=== PATIENT | female | born 1950 | race African-American/Black ===

== ENCOUNTER 2025-04-05 17:22 | Inpatient (IN) | payer MEDICARE, OTHER ==
[~2025-04-05] VITALS: Ht 157.5 cm; Wt 70.8 kg
[2025-04-05] MEDS: methylPREDNISolone SOD SUCC 125 MG/2 ML VL IV ONE (17:53)
[2025-04-05 17:59] VITALS: PULSE 112; O2SAT 98
--- NOTE | 2025-04-05 18:15 | DVH ---
CHEST RADIOGRAPH Indication: sob Technique: Single frontal view of the chest was obtained Comparison: 10/12/2024 report only FINDINGS: Lines and Tubes: None Lungs: Right mid to lower lung zone opacity with obscuration of the right hemidiaphragm. Indistinctness of the left hemidiaphragm. No pneumothorax. Cardiomediastinal contours: Limited evaluation of the Heart size due to right mid to lower lung zone opacity. Mild atherosclerotic calcification and uncoiling of the aorta. Bones: No acute osseous abnormality. IMPRESSION: Right mid to lower lung zone opacity which may represent pneumonia in the right clinical setting. Underlying small right-sided pleural effusion can not be excluded. Possible trace left-sided pleural effusion/left basilar atelectasis.
[2025-04-05] MEDS: ALBUTEROL SULF 2.5 MG/0.5ML(0.5%) NEB SOLN NEB ONE ×2 (18:17→19:25)
[2025-04-05] MEDS: IPRATROPIUM BROM 0.5 MG/2.5ML INH SOL NEB ONE ×2 (18:17→19:25)
[2025-04-05 18:40] LABS: Hematocrit 38.5 % (36.0-46.0); Hemoglobin 12.8 g/dL (12.2-16.2); Mean Corpuscular Hemoglobin 26.4 pg (28.0-32.0); Mean Corpuscular Volume 79.3 fL (80.0-100.0)
[2025-04-05 18:46] LABS: Albumin 4.0 g/dL (3.2-4.8); Anion Gap 14 (5-15); BUN/Creatinine Ratio 10.8 (10.0-20.0); Bilirubin, Total 0.8 mg/dL (0.2-1.0); Calcium 9.3 mg/dL (8.7-10.4); Carbon Dioxide 26 mmol/L (20-31); Potassium 3.8 mmol/L (3.5-5.1); Total Protein 6.9 g/dL (5.7-8.2)
[2025-04-05 18:53] LABS: Alanine Aminotransferase 42 U/L (7-40); Alkaline Phosphatase 313 U/L (46-116); Blood Urea Nitrogen 9 mg/dL (9-23); Chloride 93 mmol/L (98-107); Glucose 221 mg/dL (74-106); Sodium 133 mmol/L (136-145)
[2025-04-05 19:15] VITALS: PULSE 111; RESP 12; O2SAT 97
[2025-04-05 19:47] LABS: Anisocytosis Slight; Total Cells Counted 100.0 (100)
[2025-04-05] MEDS: AZITHROMYCIN 500MG/ 250ML 250 ML IV ONE (20:26)
--- NOTE | 2025-04-05 22:02 | ED.PDOC ---
SOB-HPI HPI Comments 74-year-old female brought in by . Patient has been having shortness of breath and a cough times 10+ days. They went to [place] urgent care last week and was prescribed antibiotics but it did not help much. Patient does have a history of asthma. States she has been using her nebulizer treatments at home with little effect. Today the shortness of breath continued to get worse so she decided to come in to get checked again. No fever no chills, no nausea no vomiting no diarrhea. Nothing makes it better, walking makes it worse. Chief Complaint: Shortness of Breath Time Seen by MD: 17:42 Reviewed notes: Nurses Notes Information Source: Patient Mode of Arrival: Wheelchair Severity: Moderate Past Medical History PAST MEDICAL HISTORY: Asthma Constitutional: denies: chills, diaphoresis, fatigue, fever, malaise, sweats, weakness, others EENTM: denies: blurred vision, double vision, ear bleeding, ear discharge, ear drainage, ear pain, ear ringing, eye pain, eye redness, hearing loss, mouth pain, mouth swelling, nasal discharge, nose bleeding, nose congestion, nose pain, photophobia, tearing, throat pain, throat swelling, voice changes, others Respiratory: reports: cough, SOB at rest, shortness of breath, SOB with excertion; denies: hemoptysis, orthopnea, stridor, wheezing, others Cardiovascular: denies: chest pain, dizzy spells, diaphoresis, Dyspnea on exertion, edema, irregular heart beat, left arm pain, lightheadedness, palpitations, PND, syncope, others Gastrointestinal: denies: abdomen distended, abdominal pain, blood streaked bowels, constipated, diarrhea, dysphagia, difficulty swallowing, hematemesis, melena, nausea, poor appetite, poor fluid intake, rectal bleeding, rectal pain, vomiting, others Genitourinary: denies: abnormal vagina bleeding, burning, dyspareunia, dysuria, flank pain, frequency, hematuria, incontinence, pain, , vagina discharge, urgency, others Neurological: denies: dizziness, fainting, headache, left sided numbness, left sided weakness, numbness, paresthesia, pre-existing deficit, right sided numbness, right sided weakness, seizure, speech problems, tingling, tremors, weakness, others Musculoskeletal: denies: back pain, gout, joint pain, joint swelling, muscle pain, muscle stiffness, neck pain, others Integumetry: denies: bruises, change in color, change in hair/nails, dryness, laceration, lesions, lumps, rash, wounds, others Allergic/Immunocompromised: denies: Difficulty Healing, Frequent Infections, Hives, Itching, others Physical Exam General Appearance: Moderate Distress HEENT: Normal ENT Inspection, Pharynx Normal, TMs Normal Neck: Full Range of Motion, Non-Tender, Normal, Normal Inspection Respiratory: Chest Non-Tender, No Accessory Muscle Use, Rhonchi, Wheezing Cardiovascular: No Edema, No JVD, No Murmur, No Gallop, Normal Peripheral Pulses, Regular Rate/Rhythm Breast Exam: Deferred Gastrointestinal: No Organomegaly, Non Tender, No Pulsatile Mass, Normal Bowel Sounds, Soft Genitalia: Deferred Pelvic: Deferred Rectal: Deferred Extremities: No calf tenderness, Normal capillary refill, Normal inspection, Normal range of motion, Non-tender, No pedal edema Musculoskeletal : Apperance: Normal Neurologic: Alert, clothes shaker II-XII nml as Tested, No Motor Deficits, Normal Affect, Normal Mood, No Sensory Deficits Cerebellar Function: Normal Reflexes: Normal Skin: Dry, Normal Color, Warm Lymphatic: No Adenopathy Was a procedure done? Was a procedure done?: No Differential Dx Differential Diagnosis: Asthma, Bronchitis, CHF, Pneumonia X-Ray, Labs, Meds, VS Vital Signs Date Time Temp Pulse Resp B/P (MAP) Pulse Ox O2 Delivery O2 Flow Rate FiO2 04/05/25 21:00 110 21 150/76 (100) 98 04/05/25 20:00 114 04/05/25 20:00 112 19 141/72 (95) 95 04/05/25 19:25 16 96 Non-Rebreather 15 N/A 04/05/25 19:20 111 12 157/72 (100) 96 04/05/25 19:15 111 12 97 Non-Rebreather 15 N/A 04/05/25 18:17 30 97 Non-Rebreather 15 N/A 04/05/25 17:59 112 98 Non-Rebreather 15 N/A 04/05/25 17:43 120 37 126/67 (86) 96 04/05/25 17:25 98.1 122 27 154/57 70 98.1 Lab Test 04/05/25 19:14 04/05/25 18:09 Range/Units Troponin I High Sensitivity < 3 L < 3 L </=34 ng/L White Blood Count 31.1 *H 4.4-10.8 10^3/uL Red Blood Count 4.86 4.0-5.20 10^6/uL Hemoglobin 12.8 12.2-16.2 g/dL Hematocrit 38.5 36.0-46.0 % Mean Corpuscular Volume 79.3 L 80.0-100.0 fL Mean Corpuscular Hemoglobin 26.4 L 28.0-32.0 pg Mean Corpuscular Hemoglobin Concent 33.3 32.0-36.0 g/dL Red Cell Distribution Width 16.5 H 11.8-14.3 % Platelet Count 356 140-450 10^3/uL Mean Platelet Volume 7.7 6.9-10.8 fL Neutrophils (%) (Auto) 37.0-80.0 % Lymphocytes (%) (Auto) 10.0-50.0 % Monocytes (%) (Auto) 0.0-12.0 % Basophils (%) (Auto) 0.0-2.0 % Neutrophils # (Auto) 1.6-8.6 10 ^3/uL Lymphocytes # (Auto) 0.4-5.4 10 ^3/uL Monocytes # (Auto) 0-1.3 10 ^3/uL Differential Total Cells Counted 100.0 100 Neutrophils % (Manual) 77 37.0-80.0 Band Neutrophils % (Manual) 14 Lymphocytes % (Manual) 4 L 10.0-50.0 Monocytes % (Manual) 4 0-12 Eosinophils % (Manual) 1 0-7 Basophils % (Manual) 0 0.0-2.0 Metamyelocytes % (manual) 0 Myelocytes % (Manual) 0 Promyelocytes % (Manual) 0 Blast Cells % (Manual) 0 Reactive Lymphocytes 0 Platelet Estimate Adequate Large Platelets Few Anisocytosis (manual) Slight Microcytosis Slight Sodium Level 133 L 136-145 mmol/L Potassium Level 3.8 3.5-5.1 mmol/L Chloride Level 93 L 98-107 mmol/L Carbon Dioxide Level 26 20-31 mmol/L Anion Gap 14 5-15 Blood Urea Nitrogen 9 9-23 mg/dL Creatinine 0.83 0.550-1.02 mg/dL Glomerular Filtration Rate Calc 73 >90 mL/min BUN/Creatinine Ratio 10.8 10.0-20.0 Serum Glucose 221 H 74-106 mg/dL Lactic Acid Level 1.4 0.4-2.0 mmol/L Calcium Level 9.3 8.7-10.4 mg/dL Total Bilirubin 0.8 0.2-1.0 mg/dL Aspartate Amino Transferase (AST) 23 13-40 U/L Alanine Aminotransferase (ALT) 42 H 7-40 U/L Alkaline Phosphatase 313 H 46-116 U/L B-Type Natriuretic Peptide 21.32 0-100 pg/mL Total Protein 6.9 5.7-8.2 g/dL Albumin 4.0 3.2-4.8 g/dL Current Medications Medications (Trade) Dose Ordered Sig/Henry Route Start Time Stop Time Status Last Admin Albuterol (Ventolin Medneb) 2.5 mg ONCE ONCE NEB 04/05/25 18:00 04/05/25 18:01 DC 04/05/25 18:17 Ipratropium [place] (Atrovent Medneb) 0.5 mg ONCE ONCE NEB 04/05/25 18:00 04/05/25 18:01 DC 04/05/25 18:17 Methylprednisolone Sodium Succinate (Solu Medrol) 125 mg ONCE ONCE IV 04/05/25 18:00 04/05/25 18:01 DC 04/05/25 17:53 Ceftriaxone Sodium 50 ml @ 100 mls/hr ONCE ONCE IV 04/05/25 18:45 04/05/25 19:14 DC 04/05/25 19:08 Azithromycin 250 ml @ 125 mls/hr ONCE ONCE IV 04/05/25 18:45 04/05/25 20:44 DC 04/05/25 20:26 Albuterol (Ventolin Medneb) 2.5 mg ONCE ONCE NEB 04/05/25 19:15 04/05/25 19:16 DC 04/05/25 19:25 Ipratropium [place] (Atrovent Medneb) 0.5 mg ONCE ONCE NEB 04/05/25 19:15 04/05/25 19:16 DC 04/05/25 19:25 X-Ray, Labs, Meds, VS Comment Patient will be admitted for pneumonia and hypoxia Patient was given three rounds of DuoNeb treatments with good effect, patient unable to maintain O2 saturation above 92% on room air. Patient placed on 10 L non-rebreather Patient was started on Rocephin 1 g and azithromycin, given 125 mg of dexamethasone Patient hemodynamically stable Prior history reviewed by this provider Time of 1ST Reevaluation: 22:01 Reevaluation 1ST: Improved Patient Education/Counseling: Diagnosis, Treatment Family Education/Counseling: Diagnosis, Treatment SEPSIS Sepsis Screen Date sepsis recognized/suspect: Apr 05, 2025 Time Sepsis recognized/suspect: 2120 Recent Procedure: No On Antibiotic Therapy: No Respiratory Rate >20: No Heart Rate >90: Yes Temp<36 C (96.8 F) or >38.3 C: No SBP <90 or MAP <65 mmHG: No New Acute Mental Status Change: No Is the patient on CPAP, BIPAP,: No Physician Orders Urinalysis (04/05/25 17:37) Electrocardigram (04/05/25 17:37) Blood Culture (04/05/25 17:37) Chest Portable (04/05/25 17:37) Electrocardigram (04/05/25 18:37) Electrocardigram (04/05/25 20:37) Vital Signs Date Time Temp Pulse Resp B/P (MAP) Pulse Ox O2 Delivery O2 Flow Rate FiO2 04/05/25 21:00 110 21 150/76 (100) 98 04/05/25 20:00 114 04/05/25 20:00 112 19 141/72 (95) 95 04/05/25 19:25 16 96 Non-Rebreather 15 N/A 04/05/25 19:20 111 12 157/72 (100) 96 04/05/25 19:15 111 12 97 Non-Rebreather 15 N/A 04/05/25 18:17 30 97 Non-Rebreather 15 N/A 04/05/25 17:59 112 98 Non-Rebreather 15 N/A 04/05/25 17:43 120 37 126/67 (86) 96 04/05/25 17:25 98.1 122 27 154/57 70 98.1 Laboratory Tests Test 04/05/25 18:09 Lactic Acid Level 1.4 mmol/L (0.4-2.0) White Blood Count 31.1 10^3/uL (4.4-10.8) *H Medications Medications Dose Ordered Sig/Henry Route Start Time Stop Time Status Last Admin Dose Admin Albuterol 2.5 mg ONCE ONCE NEB 04/05/25 18:00 04/05/25 18:01 DC 04/05/25 18:17 Albuterol 2.5 mg ONCE ONCE NEB 04/05/25 19:15 04/05/25 19:16 DC 04/05/25 19:25 Azithromycin 250 ml @ 125 mls/hr ONCE ONCE IV 04/05/25 18:45 04/05/25 20:44 DC 04/05/25 20:26 Ceftriaxone Sodium 50 ml @ 100 mls/hr ONCE ONCE IV 04/05/25 18:45 04/05/25 19:14 DC 04/05/25 19:08 Ipratropium [place] 0.5 mg ONCE ONCE NEB 04/05/25 18:00 04/05/25 18:01 DC 04/05/25 18:17 Ipratropium [place] 0.5 mg ONCE ONCE NEB 04/05/25 19:15 04/05/25 19:16 DC 04/05/25 19:25 Methylprednisolone Sodium Succinate 125 mg ONCE ONCE IV 04/05/25 18:00 04/05/25 18:01 DC 04/05/25 17:53 Departure 1 Departure Time of Disposition: 22:00 Impression: Primary Impression: Right middle lobe pneumonia Qualified Codes: J18.9 - Pneumonia, unspecified organism Additional Impression: Hypoxia Disposition: ADMITTED INPATIENT Condition: Stable Discharged With: Self Critical Care Note Critical Care Time?: No Stability Stability form required: No Heart Score Heart Score: Heart Score Response (Comments) Value History N/A 0 EKG N/A 0 Age N/A 0 Risk Factors N/A 0 Troponin N/A 0 Total 0 FRANCISCO ROYALP Apr 05, 2025 22:02
[2025-04-06] MEDS ORDERED: IPRATROPIUM BROM 0.5 MG/2.5ML INH SOL NEB PRN
[2025-04-06] MEDS ORDERED: MORPHINE SULFATE INJ 2 MG/ml SYRG IV PRN
[2025-04-06] MEDS ORDERED: ALBUTEROL SULF 2.5 MG/0.5ML(0.5%) NEB SOLN NEB PRN
[2025-04-06] MEDS ORDERED: NITROGLYCERIN 0.4 MG SL TAB SL PRN
[2025-04-06] MEDS ORDERED: ONDANSETRON HCL 4 MG/2 ML VIAL IV PRN
[2025-04-06 00:31] VITALS: BP 152/76; PULSE 112; RESP 21; TEMP 98.1; O2SAT 96
--- NOTE | 2025-04-06 04:50 | DVHHP2 ---
History of Present Illness Reason for Visit: Shortness for breath History of Present Illness 74-year-old female presents for evaluation of shortness for breath. Patient presents with a 10 day history of worsening shortness for breath with associated productive cough with yellow phlegm. She reports being seen at urgent care last week and prescribed antibiotics and yet has not had relief of the symptoms. Denies fever or chills. No chest pain. Past Medical History Asthma, hypertension, thyroid, dyslipidemia Past Surgical History Denies Family History Noncontributory Smoke: No ALCOHOL: none Drugs: None Lives: with Family Review of Systems Review of Systems Review of systems are currently negative otherwise addressed in HPI. Allergies: Coded Allergies: Aspirin (Verified Allergy, Unknown, 04/05/25) Medications Current Medications Medications Dose Ordered Sig/Henry Route Start Time Stop Time Status Last Admin Dose Admin Ceftriaxone Sodium 50 ml @ 100 mls/hr DAILY@09 IV 04/06/25 09:00 Azithromycin 250 ml @ 125 mls/hr DAILY IV 04/06/25 10:00 Montelukast Sodium 10 mg HS PO 04/06/25 22:00 Amlodipine Besylate 10 mg DAILY PO 04/06/25 10:00 Levothyroxine Sodium 75 mcg QAM@0600 PO 04/06/25 06:00 Methylprednisolone Sodium Succinate 40 mg DAILY IV 04/06/25 10:00 Albuterol 2.5 mg Q6HPRN PRN NEB 04/06/25 00:00 Ipratropium [place] 0.5 mg Q6HPRN PRN NEB 04/06/25 00:00 Ondansetron HCl 4 mg Q4HP PRN IV 04/06/25 00:00 Enoxaparin Sodium 40 mg DAILY SC 04/06/25 10:00 Acetaminophen 650 mg Q6HP PRN PO 04/06/25 00:00 Nitroglycerin 0.4 mg Q5MINP PRN SL 04/06/25 00:00 Morphine Sulfate 2 mg Q30M PRN IV 04/06/25 00:00 Pravastatin Sodium 20 mg HS PO 04/06/25 22:00 Exam Vital Signs Vital Signs Date Time Temp Pulse Resp B/P (MAP) Pulse Ox O2 Delivery O2 Flow Rate FiO2 04/06/25 02:00 116 21 157/72 (100) 93 04/06/25 00:31 98.1 15.0 98.1 04/05/25 19:25 Non-Rebreather N/A Exam Gen: 74-year-old female in mild distress Skin: Warm, dry, normal color and texture, no rash. HEENT: Normocephalic atraumatic, mucous membranes moist and pink. Neck: Cervical and supraclavicular nodes normal without enlargement, trachea is midline, thyroid gland is normal without masses. Pulmonary: Diminished breath sounds bilaterally Cardiac: Regular rate and rhythm. No murmur Abdomen: Soft, nontender, nondistended, bowel sounds present all 4 quadrants, no guarding, no rigidity, no organomegaly. Extremities: No cyanosis, clubbing, no edema Neuro: Cranial nerves II through XII grossly intact, normal affect and speech, no focal motor deficits. Labs/Xrays ORDERING PHYSICIAN: HESHAM DURON MD PROCEDURE(s): CXRP - CHEST PORTABLE REASON: sob ORDER NUMBER(s): [id number], ACCESSION NUMBER(s): [id number] CHEST RADIOGRAPH Indication: sob Technique: Single frontal view of the chest was obtained Comparison: 10/12/2024 report only FINDINGS: Lines and Tubes: None Lungs: Right mid to lower lung zone opacity with obscuration of the right hemidiaphragm. Indistinctness of the left hemidiaphragm. No pneumothorax. Cardiomediastinal contours: Limited evaluation of the Heart size due to right mid to lower lung zone opacity. Mild atherosclerotic calcification and uncoiling of the aorta. Bones: No acute osseous abnormality. IMPRESSION: Right mid to lower lung zone opacity which may represent pneumonia in the right clinical setting. Underlying small right-sided pleural effusion can not be excluded. Possible trace left-sided pleural effusion/left basilar atelectasis. Labs Test 04/05/25 19:14 04/05/25 18:09 Range/Units Troponin I High Sensitivity < 3 L </=34 ng/L White Blood Count 31.1 *H 4.4-10.8 10^3/uL Red Blood Count 4.86 4.0-5.20 10^6/uL Hemoglobin 12.8 12.2-16.2 g/dL Hematocrit 38.5 36.0-46.0 % Mean Corpuscular Volume 79.3 L 80.0-100.0 fL Mean Corpuscular Hemoglobin 26.4 L 28.0-32.0 pg Mean Corpuscular Hemoglobin Concent 33.3 32.0-36.0 g/dL Red Cell Distribution Width 16.5 H 11.8-14.3 % Platelet Count 356 140-450 10^3/uL Mean Platelet Volume 7.7 6.9-10.8 fL Neutrophils (%) (Auto) 37.0-80.0 % Lymphocytes (%) (Auto) 10.0-50.0 % Monocytes (%) (Auto) 0.0-12.0 % Basophils (%) (Auto) 0.0-2.0 % Neutrophils # (Auto) 1.6-8.6 10 ^3/uL Lymphocytes # (Auto) 0.4-5.4 10 ^3/uL Monocytes # (Auto) 0-1.3 10 ^3/uL Differential Total Cells Counted 100.0 100 Neutrophils % (Manual) 77 37.0-80.0 Band Neutrophils % (Manual) 14 Lymphocytes % (Manual) 4 L 10.0-50.0 Monocytes % (Manual) 4 0-12 Eosinophils % (Manual) 1 0-7 Basophils % (Manual) 0 0.0-2.0 Metamyelocytes % (manual) 0 Myelocytes % (Manual) 0 Promyelocytes % (Manual) 0 Blast Cells % (Manual) 0 Reactive Lymphocytes 0 Platelet Estimate Adequate Large Platelets Few Anisocytosis (manual) Slight Microcytosis Slight Sodium Level 133 L 136-145 mmol/L Potassium Level 3.8 3.5-5.1 mmol/L Chloride Level 93 L 98-107 mmol/L Carbon Dioxide Level 26 20-31 mmol/L Anion Gap 14 5-15 Blood Urea Nitrogen 9 9-23 mg/dL Creatinine 0.83 0.550-1.02 mg/dL Glomerular Filtration Rate Calc 73 >90 mL/min BUN/Creatinine Ratio 10.8 10.0-20.0 Serum Glucose 221 H 74-106 mg/dL Lactic Acid Level 1.4 0.4-2.0 mmol/L Calcium Level 9.3 8.7-10.4 mg/dL Total Bilirubin 0.8 0.2-1.0 mg/dL Aspartate Amino Transferase (AST) 23 13-40 U/L Alanine Aminotransferase (ALT) 42 H 7-40 U/L Alkaline Phosphatase 313 H 46-116 U/L B-Type Natriuretic Peptide 21.32 0-100 pg/mL Total Protein 6.9 5.7-8.2 g/dL Albumin 4.0 3.2-4.8 g/dL SEPSIS Sepsis Screen Date sepsis recognized/suspect: Apr 05, 2025 Time Sepsis recognized/suspect: 2120 Recent Procedure: No On Antibiotic Therapy: No Respiratory Rate >20: No Heart Rate >90: Yes Temp<36 C (96.8 F) or >38.3 C: No SBP <90 or MAP <65 mmHG: No New Acute Mental Status Change: No Is the patient on CPAP, BIPAP,: No Physician Orders Ceftriaxone 1gm/50ml (Rocephin) (04/06/25 09:00) Azithromycin 500mg/ 250ml (Zithromax 50 (04/06/25 10:00) Montelukast Tablet (Singulair Tablet) (04/06/25 22:00) Amlodipine Tablet (Norvasc Tablet) (04/06/25 10:00) Levothyroxine Tablet (Synthroid Tablet) (04/06/25 06:00) Methylprednisolone Sod Succ (Solu Medrol (04/06/25 10:00) Albuterol Medneb (Ventolin Medneb) (04/06/25 00:00) Ipratropium Medneb (Atrovent Medneb) (04/06/25 00:00) D-Dimer (04/05/25 23:54) Basic Metabolic Panel (04/06/25 04:00) Admit (04/05/25 23:54) Ondansetron Hcl (Zofran) (04/06/25 00:00) Enoxaparin Sodium (Lovenox) (04/06/25 10:00) Complete Blood Count (04/06/25 04:00) Cardiac Diet-2gna,Lofat,Lochol (04/06/25 Breakfast) Condition: Critical (04/05/25 23:54) Acetaminophen Tablet (Tylenol Tablet) (04/06/25 00:00) Bedrest With Bathroom Privileg (04/05/25 23:54) Nitroglycerin Sublingual (Ntrostat Subli (04/06/25 00:00) Morphine Sulfate Injection (04/06/25 00:00) Stat Ekg For Chest Pain (04/05/25 23:54) Notify Of Changes From Base (04/05/25 23:54) Engineering Drawings Checker For 24 Hours (04/05/25 23:54) Emergency Dysrhythmia Protocol (04/05/25 23:54) Rhythm Strips Once Every Shift (04/05/25 23:54) Oxygen By Nasal Cannula (04/05/25 23:54) Pravastatin Sodium Tablet (Pravachol Tab (04/06/25 22:00) Vital Signs Date Time Temp Pulse Resp B/P (MAP) Pulse Ox O2 Delivery O2 Flow Rate FiO2 04/06/25 02:00 116 21 157/72 (100) 93 04/06/25 00:31 98.1 112 21 152/76 96 15.0 98.1 04/06/25 00:03 150/76 04/05/25 23:00 112 21 152/76 (101) 96 04/05/25 21:00 110 21 150/76 (100) 98 Laboratory Tests Test 04/05/25 18:09 Lactic Acid Level 1.4 mmol/L (0.4-2.0) White Blood Count 31.1 10^3/uL (4.4-10.8) *H Medications Medications Dose Ordered Sig/Henry Route Start Time Stop Time Status Last Admin Dose Admin Albuterol 2.5 mg ONCE ONCE NEB 04/05/25 18:00 04/05/25 18:01 DC 04/05/25 18:17 2.5 MG Albuterol 2.5 mg ONCE ONCE NEB 04/05/25 19:15 04/05/25 19:16 DC 04/05/25 19:25 2.5 MG Amlodipine Besylate 5 mg ONCE ONCE PO 04/05/25 23:45 04/05/25 23:46 DC 04/06/25 00:03 5 MG Azithromycin 250 ml @ 125 mls/hr ONCE ONCE IV 04/05/25 18:45 04/05/25 20:44 DC 04/05/25 20:26 125 MLS/HR Ceftriaxone Sodium 50 ml @ 100 mls/hr ONCE ONCE IV 04/05/25 18:45 04/05/25 19:14 DC 04/05/25 19:08 100 MLS/HR Ipratropium [place] 0.5 mg ONCE ONCE NEB 04/05/25 18:00 04/05/25 18:01 DC 04/05/25 18:17 0.5 MG Ipratropium [place] 0.5 mg ONCE ONCE NEB 04/05/25 19:15 04/05/25 19:16 DC 04/05/25 19:25 0.5 MG Methylprednisolone Sodium Succinate 125 mg ONCE ONCE IV 04/05/25 18:00 04/05/25 18:01 DC 04/05/25 17:53 125 MG Assessment/Plan Assessment/Plan Assessment Community-acquired pneumonia Early sepsis Leukocytosis Acute kidney injury Hypertension Plan Admit the patient to [facility] to the hospitalist Rocephin/azithromycin Med nebs Resume home medications Continue treatment per orders. Plan discussed with: Patient My Orders Orders - JOSE GARNETT Procedure Category Date Status Time Ceftriaxone 1gm/50ml PHA 04/06/25 In Process (Rocephin) 09:00 Azithromycin 500mg/ PHA 04/06/25 In Process 250ml (Zithromax 50 10:00 Montelukast Tablet PHA 04/06/25 In Process (Singulair Tablet) 22:00 Amlodipine Tablet PHA 04/06/25 In Process (Norvasc Tablet) 10:00 Levothyroxine Tablet PHA 04/06/25 In Process (Synthroid Tablet) 06:00 Methylprednisolone PHA 04/06/25 In Process Sod Succ (Solu Medrol 10:00 Albuterol Medneb PHA 04/06/25 In Process (Ventolin Medneb) 00:00 Ipratropium Medneb PHA 04/06/25 In Process (Atrovent Medneb) 00:00 D-Dimer LAB 04/05/25 Logged 23:54 Basic Metabolic Panel LAB 04/06/25 Logged 04:00 Admit ADMIT 04/05/25 Transmitted 23:54 Ondansetron Hcl PHA 04/06/25 In Process (Zofran) 00:00 Enoxaparin Sodium PHA 04/06/25 In Process (Lovenox) 10:00 Complete Blood Count LAB 04/06/25 Logged 04:00 Cardiac DIET 04/06/25 Transmitted Diet-2gna,Lofat,Lochol Breakfast Condition: Critical [facility]ANDI 04/05/25 In Process 23:54 Acetaminophen Tablet PHA 04/06/25 In Process (Tylenol Tablet) 00:00 Bedrest With Bathroom [facility] 04/05/25 In Process Privileg 23:[address] [facility] 04/06/25 In Process Sublingual (Ntrostat 00:00 Morphine [address] [facility] 04/06/25 In Process Injection 00:00 Stat Ekg For Chest [facility] 04/05/25 In Process Pain 23:54 Notify Of Changes [facility] 04/05/25 In Process From Base 23:54 Engineering Drawings Checker For [facility] 04/05/25 In Process 24 Hours 23:54 Emergency Dysrhythmia [facility] 04/05/25 In Process Protocol 23:54 Rhythm Strips Once [facility] 04/05/25 In Process Every Shift 23:54 Oxygen By Nasal RT 04/05/25 Transmitted Cannula 23:54 Date of Service: Apr 05, 2025 Billing Provider: JOSE GARNETT Common Visit Codes: [id number] CARE 30-74 MIN JOSE GARNETT Apr 06, 2025 04:49
[2025-04-06 05:57] LABS: Hematocrit 36.4 % (36.0-46.0); Hemoglobin 12.1 g/dL (12.2-16.2); Mean Corpuscular Hemoglobin 26.4 pg (28.0-32.0); Mean Corpuscular Volume 79.2 fL (80.0-100.0)
[2025-04-06 05:58] LABS: Potassium 4.2 mmol/L (3.5-5.1)
[2025-04-06 05:59] LABS: Anion Gap 11 (5-15); Calcium 9.3 mg/dL (8.7-10.4); Carbon Dioxide 27 mmol/L (20-31)
[2025-04-06 06:04] LABS: BUN/Creatinine Ratio 14.6 (10.0-20.0); Blood Urea Nitrogen 12 mg/dL (9-23)
[2025-04-06 06:05] LABS: Chloride 94 mmol/L (98-107); Glucose 295 mg/dL (74-106); Sodium 132 mmol/L (136-145)
[2025-04-06] MEDS: LEVOTHYROXINE SODIUM 25 MCG TAB PO SCH (06:12)
[2025-04-06 06:27] VITALS: O2SAT 98
[2025-04-06 06:56] LABS: Total Cells Counted 100.0 (100)
[2025-04-06 06:57] LABS: Giant Platelets Few
[2025-04-06] MEDS: methylPREDNISolone SOD SUCC 40 MG/ML VL IV SCH ×2 (10:49→15:09)
[2025-04-06] MEDS: ENOXAPARIN SOD 40 MG/0.4 ML SYRINGE SC SCH (10:49)
[2025-04-06] MEDS: AZITHROMYCIN 500MG/ 250ML 250 ML IV SCH (11:07)
--- NOTE | 2025-04-06 12:59 | DVHPN2 ---
Reviewed: Care Plan, H&P, Labs, Medications, Previous Orders, Radiology Changes from previous H/P or p: No Changes Objective Vitals Vital Signs Date Time Temp Pulse Resp B/P (MAP) Pulse Ox O2 Delivery O2 Flow Rate FiO2 04/06/25 11:00 100 17 152/76 (101) 95 04/06/25 08:00 97.6 97.6 04/06/25 08:00 Non-Rebreather 15 N/A Intake/Output Intake and Output 04/06/25 07:00 Intake Total 425 ml Balance 425 ml Intake IV Total 425 ml Medications Current Medications Medications Dose Ordered Sig/Henry Route Start Time Stop Time Status Last Admin Dose Admin Ceftriaxone Sodium 50 ml @ 100 mls/hr DAILY@09 IV 04/06/25 09:00 04/06/25 09:24 100 MLS/HR Azithromycin 250 ml @ 125 mls/hr DAILY IV 04/06/25 10:00 04/06/25 11:07 125 MLS/HR Montelukast Sodium 10 mg HS PO 04/06/25 22:00 Amlodipine Besylate 10 mg DAILY PO 04/06/25 10:00 04/06/25 10:50 10 MG Levothyroxine Sodium 75 mcg QAM@0600 PO 04/06/25 06:00 04/06/25 06:12 75 MCG Methylprednisolone Sodium Succinate 40 mg DAILY IV 04/06/25 10:00 04/06/25 10:49 40 MG Albuterol 2.5 mg Q6HPRN PRN NEB 04/06/25 00:00 Ipratropium [place] 0.5 mg Q6HPRN PRN NEB 04/06/25 00:00 Ondansetron HCl 4 mg Q4HP PRN IV 04/06/25 00:00 Enoxaparin Sodium 40 mg DAILY SC 04/06/25 10:00 04/06/25 10:49 40 MG Acetaminophen 650 mg Q6HP PRN PO 04/06/25 00:00 Nitroglycerin 0.4 mg Q5MINP PRN SL 04/06/25 00:00 Morphine Sulfate 2 mg Q30M PRN IV 04/06/25 00:00 Pravastatin Sodium 20 mg HS PO 04/06/25 22:00 Laboratory Results Laboratory Tests 04/06/25 05:29 Chemistry Test 04/05/25 18:09 04/06/25 05:29 Albumin 4.0 g/dL (3.2-4.8) Calcium Level 9.3 mg/dL (8.7-10.4) 9.3 mg/dL (8.7-10.4) Total Protein 6.9 g/dL (5.7-8.2) Coagulation Test 04/06/25 05:29 D-Dimer, Quantitative 4.36 mg/L FEU (0.0-0.49) H Cardiac Markers Test 04/05/25 18:09 B-Type Natriuretic Peptide 21.32 pg/mL (0-100) LFT Test 04/05/25 18:09 Alanine Aminotransferase (ALT) 42 U/L (7-40) H Alkaline Phosphatase 313 U/L (46-116) H Aspartate Amino Transferase (AST) 23 U/L (13-40) Total Bilirubin 0.8 mg/dL (0.2-1.0) Labs and/or images reviewed: Labs reviewed by me, Image(s) reviewed by me Assessment/Plan Assessment/Plan Septic shock with elevated white count 13194 secondary to community-acquired pneumonia: Blood cultures respiratory cultures Acute community-acquired right lower lobe pneumonia: Rocephin azithromycin albuterol Atrovent Solu-Medrol Acute hypoxic respiratory failure requiring 15 L of oxygen by non-rebreather consult for pulmonology Dr. Gómez Elevated D-dimer 4.36: Venous ultrasound rule out DVT, CT chest angiogram rule out PE ordered Hypertension Hypercholesterolemia: Hypothyroidism Asthma Time Spent 70 minutes Advanced care planning time 20 minutes Patient is full code Plan discussed with: Patient My Orders Orders - JOSH ARMSTRONG MD Procedure Category Date Status Time Ct Angio Chest CT 04/06/25 Logged Contrast 12:47 Bilat Lower Dvt US 04/06/25 Verified 12:47 *Consult CONS 04/06/25 Transmitted 12:49 Respiratory Culture INRAV 04/06/25 Logged W/ Gs 12:51 Methylprednisolone PHA 04/06/25 Transmitted Sod Succ (Solu Medrol 13:00 Date of Service: Apr 06, 2025 Billing Provider: JOSH ARMSTRONG MD Common Visit Codes: [id number] CARE 30-74 MIN JOSH ARMSTRONG MD Apr 06, 2025 12:59
[2025-04-06] MEDS: IOHEXOL 350 MG/ML 100ML IJ ONE (13:17)
--- NOTE | 2025-04-06 14:42 | DVH ---
Bilateral lower extremity venous duplex Clinical History: pain; Rule out DVT Comparison: None Technique: Duplex Doppler evaluation of the deep venous systems of both lower extremities from the common femoral veins to the popliteal veins including color Doppler and spectral/pulsed waveform analysis was performed. Findings: RIGHT SIDE: The common femoral vein demonstrates appropriate compressibility and waveform variability. There is compressibility/patency of the great saphenous vein at the proximal thigh. The femoral vein demonstrates appropriate compressibility and waveform variability. The deep femoral vein demonstrates appropriate compressibility and waveform variability. The popliteal vein demonstrates appropriate compressibility and waveform variability. There is normal compressibility at the tibioperoneal trunk. LEFT SIDE: The common femoral vein demonstrates appropriate compressibility and waveform variability. There is compressibility/patency of the great saphenous vein at the proximal thigh. The femoral vein demonstrates appropriate compressibility and waveform variability. The deep femoral vein demonstrates appropriate compressibility and waveform variability. The popliteal vein demonstrates appropriate compressibility and waveform variability. There is normal compressibility at the tibioperoneal trunk. Impression: No right or left femoropopliteal venous thrombosis.
[2025-04-06 14:52] VITALS: PULSE 106; RESP 24; O2SAT 90
[2025-04-06] MEDS: IPRATROPIUM BROM 0.5 MG/2.5ML INH SOL NEB SCH (14:56)
[2025-04-06] MEDS: ALBUTEROL SULF 2.5 MG/0.5ML(0.5%) NEB SOLN NEB SCH (14:56)
[2025-04-06 15:02] VITALS: PULSE 110; RESP 18; O2SAT 94
--- NOTE | 2025-04-06 15:48 | DVH ---
CLINICAL HISTORY: Elevated D-dimer 4.36 rule out pulmonary embolism TECHNIQUE: CT angiogram of the chest was performed with intravenous contrast. 3D MIP reconstructed images were created and archived on the PACS system. This exam was performed according to our departmental dose optimization program. Up-to-date CT equipment and radiation dose reduction techniques are utilized as appropriate. CTDI: 20.72 DLP: 500.45 WID: COMPARISON: XY CHEST PORTABLE on DOS: 04/05/25, CT- LOWDOSE LUNG CANCER SCREEN on DOS: 11/04/24, XR CHEST 2 VIEWS on DOS: 10/12/24 FINDINGS: Lower Neck: Unremarkable Axilla, Mediastinum and Mayte: Small sliding-type hiatal hernia. There are mildly enlarged right hilar and mediastinal lymph nodes. No axillary lymphadenopathy. Heart and Great Vessels: Mild cardiomegaly with small pericardial effusion. The thoracic aorta is normal in caliber with moderate mixed atherosclerotic plaque. At least mild coronary artery calcifications. No central, segmental, or subsegmental pulmonary artery filling defects are seen to suggest pulmonary embolism. Airway, Lungs and Pleura: Trachea and central airways are patent. Bronchial wall thickening bilaterally. Moderate to marked centrilobular emphysema. There is a large right upper lobe consolidation with air bronchograms. Smaller patchy airspace consolidations in the right lower lobe. Small right pleural effusion. No pneumothorax. Linear consolidations in the basilar right middle and lower lobes with volume loss. Chest Wall and Osseous Structures: Multilevel thoracic spondylosis. Slight bony demineralization. No destructive osseous lesion. Upper abdomen: Unremarkable IMPRESSION: 1. No evidence of pulmonary embolism. 2. Large consolidation with air bronchograms in the right upper lobe and smaller patchy airspace opacities in the right lower lobe likely multifocal pneumonia. 3. Linear consolidations in the basilar right middle and lower lobes with volume loss, likely atelectasis. 4. Mild right hilar and mediastinal lymphadenopathy, likely reactive. Attention on follow-up CT imaging within 3 months after appropriate course of medical therapy recommended. 5. Marked centrilobular emphysema. 6. Mild cardiomegaly and small pericardial fluid. 7. At least mild calcified coronary artery disease.
[2025-04-06 19:00] VITALS: PULSE 113; RESP 32; O2SAT 94
[2025-04-06] MEDS ORDERED: PRAVASTATIN SODIUM 20 MG TAB PO SCH (22:00)
--- NOTE | 2025-04-06 22:30 | DVHINCON2 ---
Date of service: Apr 06, [address] Josh Armstrong [facility] Reason for Consultation Acute hypoxic respiratory failure and pneumonia. History of Present Illness A 74-year-old woman with past medical history of asthma, hypertension, dyslipidemia and hypothyroidism who presented to ED on 04/05/25 for evaluation of shortness of breath. Patient reported a 10-day history of worsening shortness of breath with associated productive cough with yellow phlegm. She was seen at urgent care last week and prescribed antibiotics, but had no relief of symptoms. Pt has been using her nebulizer treatments at home with no benefit. Shortness of breath continued to get worse, patient presented to ED for evaluation. Pt denied fever, chills, chest pain, N/V/D or other acute complaints. Patient was admitted for further care. Pulmonary consultation is requested for evaluation and management of acute hypoxic respiratory failure and pneumonia. Review of Systems: 14-point review of systems negative unless otherwise noted above. Past Medical History Asthma, hypertension, hypothyroidism, dyslipidemia Past Surgical History None Medications: Reviewed. Allergies: Aspirin. Family History: No family history of premature CAD. No family history of lung disorders. Social History: Nonsmoker. No alcohol or illicit drug use. Allergies: Coded Allergies: Aspirin (Verified Allergy, Unknown, 04/05/25) Home Meds Active Scripts Levothyroxine Sodium (SYNTHROID TABLET) 50 Mcg Tb, 1 TAB PO DAILY, #90 TAB 3 Refills Prov:JOSH ARMSTRONG MD 04/09/25 Prednisone (Prednisone) 20 Mg Tab, 20 MG PO DAILY, #10 MG Prov:JOSH ARMSTRONG MD 04/09/25 Metformin Hydrochloride (Metformin Hcl) 1,000 Mg Tab, 1 TAB PO BID, #180 TAB 1 Refill Prov:JOSH ARMSTRONG MD 04/09/25 Azithromycin (Azithromycin) 500 Mg Tab, 1 TAB PO DAILY, #7 TAB Prov:JOSH ARMSTRONG MD 04/09/25 Reported Medications Montelukast Sodium (MONTELUKAST SODIUM) 10 Mg Tab, 1 TAB PO DAILY 04/07/25 Albuterol Sulfate (Proair Respiclick) 108 Mcg/Act Aer, INH 04/07/25 Montelukast Sodium (Singulair) 10 Mg Tab, 1 TAB PO DAILY 04/07/25 Levothyroxine Sodium (Synthroid) 75 Mcg Tab, 1 TAB PO DAILY 04/07/25 Amlodipine Besylate (Amlodipine Besylate) 10 Mg Tab, 1 TAB PO DAILY 04/07/25 Prednisone (Prednisone) 10 Mg Tab, 1 TAB PO DAILY 04/07/25 Azithromycin (Azithromycin) 250 Mg Tab, 1 TAB PO UD 04/07/25 Current Medications Current Medications Medications (Trade) Dose Ordered Sig/Henry Route PRN Reason Start Time Stop Time Status Last Admin Ceftriaxone Sodium 50 ml @ 100 mls/hr DAILY@09 IV 04/06/25 09:00 04/06/25 09:24 Azithromycin 250 ml @ 125 mls/hr DAILY IV 04/06/25 10:00 04/06/25 11:07 Montelukast Sodium (Singulair Tablet) 10 mg HS PO 04/06/25 22:00 Amlodipine Besylate (Norvasc Tablet) 10 mg DAILY PO 04/06/25 10:00 04/06/25 10:50 Levothyroxine Sodium (Synthroid Tablet) 75 mcg QAM@0600 PO 04/06/25 06:00 04/06/25 06:12 Pravastatin Sodium (Pravachol Tablet) 40 mg HS PO 04/06/25 22:00 04/06/25 00:12 DC Methylprednisolone Sodium Succinate (Solu Medrol) 40 mg DAILY IV 04/06/25 10:00 04/06/25 12:55 DC 04/06/25 10:49 Albuterol (Ventolin Medneb) 2.5 mg Q6HPRN PRN NEB SHORTNESS OF BREATH 04/06/25 00:00 04/06/25 13:41 DC Ipratropium [place] (Atrovent Medneb) 0.5 mg Q6HPRN PRN NEB SHORTNESS OF BREATH 04/06/25 00:00 04/06/25 13:41 DC Ondansetron HCl (Zofran) 4 mg Q4HP PRN IV NAUSEA / VOMITING 04/06/25 00:00 Enoxaparin Sodium (Lovenox) 40 mg DAILY SC 04/06/25 10:00 04/06/25 10:49 Acetaminophen (Tylenol Tablet) 650 mg Q6HP PRN PO PAIN SCALE 1-3 OR TEMP>100.4 04/06/25 00:00 Nitroglycerin (Ntrostat Sublingual) 0.4 mg Q5MINP PRN SL FOR CHEST PAIN 04/06/25 00:00 Morphine Sulfate 2 mg Q30M PRN IV FOR CHEST PAIN 04/06/25 00:00 Pravastatin Sodium (Pravachol Tablet) 20 mg HS PO 04/06/25 22:00 Methylprednisolone Sodium Succinate (Solu Medrol) 60 mg Q8HR IV 04/06/25 13:00 04/06/25 15:11 Albuterol (Ventolin Medneb) 2.5 mg Q4HR NEB 04/06/25 14:00 04/06/25 21:19 Ipratropium [place] (Atrovent Medneb) 0.5 mg Q4HR NEB 04/06/25 14:00 04/06/25 21:19 Vital Signs Vital Signs Date Time Temp Pulse Resp B/P (MAP) Pulse Ox O2 Delivery O2 Flow Rate FiO2 04/06/25 21:20 20 94 Nasal Cannula* 6 44 04/06/25 16:30 109 152/76 (101) 04/06/25 08:00 97.6 97.6 Physical Exam Gen.: Patient lying in bed in no apparent distress. On supplemental oxygen. Head: Normocephalic, atraumatic. Eyes: EOMI/PERRLA. Ears: Normal hearing. Normal anatomy. Neck/trachea: Trachea midline, supple. Nose: Normal external anatomy. Mouth: Moist mucous membranes. Chest: Decreased air entry bilaterally. No wheezing or rhonchi. Cardiovascular: Positive S1, positive S2. Regular rate and rhythm. Abdomen: Positive bowel sounds in all 4 quadrants. Soft, non-tender, non- distended. : Deferred. Rectal: Deferred. Skin: Warm, dry. Intact. Extremities: 2+ radial pulses bilaterally. No lower extremity edema. Neuro: Awake, alert, oriented x3. No gross motor or sensory deficits. Cranial nerves II through XII intact. Gait not assessed. Labs/Diagnostic Data Labs Test 04/06/25 05:29 04/05/25 19:14 04/05/25 18:09 Range/Units White Blood Count 32.5 *H 4.4-10.8 10^3/uL Red Blood Count 4.60 4.0-5.20 10^6/uL Hemoglobin 12.1 L 12.2-16.2 g/dL Hematocrit 36.4 36.0-46.0 % Mean Corpuscular Volume 79.2 L 80.0-100.0 fL Mean Corpuscular Hemoglobin 26.4 L 28.0-32.0 pg Mean Corpuscular Hemoglobin Concent 33.3 32.0-36.0 g/dL Red Cell Distribution Width 16.4 H 11.8-14.3 % Platelet Count 358 140-450 10^3/uL Mean Platelet Volume 7.6 6.9-10.8 fL Neutrophils (%) (Auto) 37.0-80.0 % Lymphocytes (%) (Auto) 10.0-50.0 % Monocytes (%) (Auto) 0.0-12.0 % Basophils (%) (Auto) 0.0-2.0 % Neutrophils # (Auto) 1.6-8.6 10 ^3/uL Lymphocytes # (Auto) 0.4-5.4 10 ^3/uL Monocytes # (Auto) 0-1.3 10 ^3/uL Differential Total Cells Counted 100.0 100 Neutrophils % (Manual) 92 H 37.0-80.0 Band Neutrophils % (Manual) 0 Lymphocytes % (Manual) 3 L 10.0-50.0 Monocytes % (Manual) 5 0-12 Eosinophils % (Manual) 0 0-7 Basophils % (Manual) 0 0.0-2.0 Metamyelocytes % (manual) 0 Myelocytes % (Manual) 0 Promyelocytes % (Manual) 0 Blast Cells % (Manual) 0 Reactive Lymphocytes 0 Platelet Estimate Adequate Large Platelets Few Giant Platelets Few Microcytosis Slight D-Dimer, Quantitative 4.36 H 0.0-0.49 mg/L FEU Sodium Level 132 L 136-145 mmol/L Potassium Level 4.2 3.5-5.1 mmol/L Chloride Level 94 L 98-107 mmol/L Carbon Dioxide Level 27 20-31 mmol/L Anion Gap 11 5-15 Blood Urea Nitrogen 12 9-23 mg/dL Creatinine 0.82 0.550-1.02 mg/dL Glomerular Filtration Rate Calc 74 >90 mL/min BUN/Creatinine Ratio 14.6 10.0-20.0 Serum Glucose 295 H 74-106 mg/dL Calcium Level 9.3 8.7-10.4 mg/dL Troponin I High Sensitivity < 3 L </=34 ng/L Anisocytosis (manual) Slight Lactic Acid Level 1.4 0.4-2.0 mmol/L Total Bilirubin 0.8 0.2-1.0 mg/dL Aspartate Amino Transferase (AST) 23 13-40 U/L Alanine Aminotransferase (ALT) 42 H 7-40 U/L Alkaline Phosphatase 313 H 46-116 U/L B-Type Natriuretic Peptide 21.32 0-100 pg/mL Total Protein 6.9 5.7-8.2 g/dL Albumin 4.0 3.2-4.8 g/dL Microbiology Date/Time Source Procedure Growth Status 04/05/25 18:09 Blood Blood Culture - Preliminary NO GROWTH AFTER 24 HOURS OF INCUBATION. Resulted Assessment Impression: Acute hypoxic respiratory failure 2/2 pneumonia Dependence on supplemental oxygen Pneumonia likely gram negative rods vs gram positive cocci Sepsis due to pneumonia Leukocytosis Acute kidney injury Plan: Supplemental oxygen Titrate to keep O2 sats above 92%. On 15 LPM nonrebreather. Taper O2 as tolerated. BiPAP PRN. CT angio results reviewed; No evidence of pulmonary embolism. Large consolidation with air bronchograms in the right upper lobe and smaller patchy airspace opacities in the right lower lobe, likely multifocal pneumonia. Linear consolidations in the basilar right middle and lower lobes with volume loss, likely atelectasis. Mild right hilar and mediastinal lymphadenopathy, likely reactive. Marked centrilobular emphysema. Mild cardiomegaly and small pericardial fluid. BLE venous Doppler reveals no evidence of DVT Continue bronchodilators IV steroids. Continue antibiotics Monitor WBC - 32.5 K On montelukast. Monitor renal function due to WARREN Follow up Nephrology recs Monitor electrolytes. Supplement as necessary. Monitor ins and outs. DVT prophylaxis. Prognosis: Poor given patient's multiple co-morbidities. Rest of plan per hospitalist and other consultants. Thank you, Dr. Armstrong, for allowing me to participate in this patient's care. Further recommendations will depend on the patient's clinical course. Please do not hesitate to contact me if you have any questions or concerns. This medical document was created using an electronic medical record system with [employer] system. Although these documentations are being carefully reviewed, there may still be some phonetic and typographical changes. The errors are purely typographical, due to imperfection on the software program, and do not reflect any compromise in the patient's medical care. Plan discussed with: Patient, Other (RN/Dr. Armstrong) Visit Coding Pulmonary Billing Provider: GABRIELLA POLLOCK MD Date of Service if different f: Apr 06, 2025 Common Visit Codes: [id number] INP/OBS CARE (HIGH) GABRIELLA POLLOCK MD Apr 06, 2025 22:30
[2025-04-06] MEDS: PRAVASTATIN SODIUM 20 MG TAB PO SCH (22:56)
[2025-04-06] MEDS: MONTELUKAST SODIUM 10 MG TAB PO SCH (22:56)
[2025-04-07] VITALS (32 sets, daily range): BP systolic 121–146; BP diastolic 62–78; PULSE 86–120; RESP 14–38; TEMP 97.9–98.6; O2SAT 89–100
[2025-04-07 03:11] LABS: Urine Protein, UAD 1+ (Negative)
[2025-04-07] MEDS ORDERED: MONT10TA23 PO (04:30)
[2025-04-07] MEDS ORDERED: MONT-8 PO (04:30)
[2025-04-07] MEDS ORDERED: ALBU1AER4 INH (04:30)
[2025-04-07] MEDS ORDERED: AMLO1TAB23 PO (04:30)
[2025-04-07] MEDS ORDERED: PRED10TA PO (04:30)
[2025-04-07] MEDS ORDERED: LEV75T PO (04:30)
[2025-04-07] MEDS ORDERED: AZIT-43 PO (04:30)
--- NOTE | 2025-04-07 09:54 | DVHPN2 ---
Reviewed: Care Plan, H&P, Labs, Medications, Previous Orders, Radiology Changes from previous H/P or p: No Changes Objective Vitals Vital Signs Date Time Temp Pulse Resp B/P (MAP) Pulse Ox O2 Delivery O2 Flow Rate FiO2 04/07/25 09:16 90 26 95 04/07/25 09:10 Nasal Cannula 5.0 04/07/25 09:10 40 04/07/25 05:15 04/07/25 04:00 98.6 98.6 Intake/Output Intake and Output 04/07/25 07:00 Intake Total 715 ml Balance 715 ml Intake Oral 240 ml IV Total 475 ml # Voids 2 Medications Current Medications Medications Dose Ordered Sig/Henry Route Start Time Stop Time Status Last Admin Dose Admin Ceftriaxone Sodium 50 ml @ 100 mls/hr DAILY@09 IV 04/06/25 09:00 04/06/25 09:24 100 MLS/HR Azithromycin 250 ml @ 125 mls/hr DAILY IV 04/06/25 10:00 04/06/25 11:07 125 MLS/HR Montelukast Sodium 10 mg HS PO 04/06/25 22:00 04/06/25 22:56 10 MG Amlodipine Besylate 10 mg DAILY PO 04/06/25 10:00 04/06/25 10:50 10 MG Levothyroxine Sodium 75 mcg QAM@0600 PO 04/06/25 06:00 04/07/25 06:10 75 MCG Ondansetron HCl 4 mg Q4HP PRN IV 04/06/25 00:00 Enoxaparin Sodium 40 mg DAILY SC 04/06/25 10:00 04/06/25 10:49 40 MG Acetaminophen 650 mg Q6HP PRN PO 04/06/25 00:00 Nitroglycerin 0.4 mg Q5MINP PRN SL 04/06/25 00:00 Morphine Sulfate 2 mg Q30M PRN IV 04/06/25 00:00 Pravastatin Sodium 20 mg HS PO 04/06/25 22:00 04/06/25 22:56 20 MG Methylprednisolone Sodium Succinate 60 mg Q8HR IV 04/06/25 13:00 04/07/25 06:10 60 MG Albuterol 2.5 mg Q4HR NEB 04/06/25 14:00 04/07/25 09:11 2.5 MG Ipratropium [place] 0.5 mg Q4HR NEB 04/06/25 14:00 04/07/25 09:10 0.5 MG Laboratory Results Laboratory Tests 04/06/25 05:29 Urinalysis Test 04/07/25 02:00 Urine Color Light-yellow (Yellow) Urine Clarity Clear (Clear) Urine pH 6.0 (5.0-9.0) Urine Specific [place] 1.035 (1.001-1.035) Urine Protein 1+ (Negative) H Urine Ketones Negative (Negative) Urine Blood 1+ /uL (Negative) H Urine Nitrite Negative (Negative) Urine Bilirubin Negative (Negative) Urine Urobilinogen Normal mg/dL (Negative) Urine Leukocyte Esterase 1+ /uL (Negative) Urine RBC 4 /hpf (0 - 4) Urine Microscopic WBC 8 /HPF (0-5) H Urine Squamous Epithelial Cells Few /hpf (<5) Urine Bacteria None seen /hpf (None Seen) Urine Glucose 4+ mg/dL (Normal) H Microbiology Microbiology Date/Time Source Procedure Growth Status 04/05/25 18:09 Blood Blood Culture - Preliminary NO GROWTH AFTER 24 HOURS OF INCUBATION. Resulted Labs and/or images reviewed: Labs reviewed by me, Image(s) reviewed by me Assessment/Plan Assessment/Plan Septic shock with elevated white count 98037 secondary to community-acquired pneumonia: Blood cultures negative, respiratory cultures pending Acute community-acquired right lower lobe pneumonia: Rocephin azithromycin albuterol Atrovent Solu-Medrol Acute hypoxic respiratory failure requiring 6 L of oxygen by nasal cannula consult for pulmonology Dr. Gómez Elevated D-dimer 4.36: DVT ruled out, PE ruled out Hypertension Hypercholesterolemia: Hypothyroidism Acute asthma exacerbation Time Spent 70 minutes Advanced care planning time 20 minutes Patient is full code Seen in [facility] Plan discussed with: Patient My Orders Orders - JOSH ARMSTRONG MD Procedure Category Date Status Time Ct Angio Chest CT 04/06/25 Resulted Contrast 12:47 Bilat Lower Dvt US 04/06/25 Resulted 12:47 *Consult CONS 04/06/25 Transmitted 12:49 Respiratory Culture NIRAV 04/06/25 Logged W/ Gs 12:51 Methylprednisolone PHA 04/06/25 In Process Sod Succ (Solu Medrol 13:00 Albuterol Medneb PHA 04/06/25 In Process (Ventolin Medneb) 14:00 Ipratropium Medneb PHA 04/06/25 In Process (Atrovent Medneb) 14:00 Date of Service: Apr 07, 2025 Billing Provider: JOSH ARMSTRONG MD Common Visit Codes: [id number] CARE 30-74 MIN JOSH ARMSTRONG MD Apr 07, 2025 09:54
[2025-04-07] MEDS ORDERED: DEXTROSE (50%) 50ML SYRG IV PRN (10:45)
[2025-04-07 11:40] LABS: Hematocrit 37.6 % (36.0-46.0); Hemoglobin 12.4 g/dL (12.2-16.2); Mean Corpuscular Hemoglobin 26.3 pg (28.0-32.0); Mean Corpuscular Volume 79.8 fL (80.0-100.0)
[2025-04-07 11:54] LABS: Alanine Aminotransferase 57 U/L (7-40); Alkaline Phosphatase 273 U/L (46-116); Anion Gap 10 (5-15); BUN/Creatinine Ratio 17.1 (10.0-20.0); Blood Urea Nitrogen 12 mg/dL (9-23); Calcium 9.4 mg/dL (8.7-10.4); Carbon Dioxide 29 mmol/L (20-31); Chloride 94 mmol/L (98-107); Glucose 304 mg/dL (74-106); Potassium 4.4 mmol/L (3.5-5.1); Sodium 133 mmol/L (136-145); Total Protein 7.0 g/dL (5.7-8.2)
[2025-04-07 11:55] LABS: Albumin 4.0 g/dL (3.2-4.8); Bilirubin, Total 0.4 mg/dL (0.2-1.0)
[2025-04-07 12:06] LABS: Total Cells Counted 100.0 (100)
[2025-04-07 14:00] LABS: COVID19 ANTIGEN SOFIA FIA NEGATIVE (NEGATIVE)
[2025-04-07] MEDS: methylPREDNISolone SOD SUCC 125 MG/2 ML VL IV SCH (21:07)
[2025-04-07] MEDS: ACCU-CHEK COMFORT CURVE STRIP VI SCH (21:10)
[2025-04-07] MEDS: InsuLIN REG 1unit/0.01ml Soln (100units/ml) SC SCH (21:13)
--- NOTE | 2025-04-07 23:18 | DVHPN2 ---
Subjective [facility] DOS: 04/07/2025 Patient seen and examined at bedside. Remains on supplemental oxygen Overnight events reviewed. Reviewed: Care Plan, H&P, Labs, Medications, Previous Orders, Radiology Changes from previous H/P or p: No Changes Objective Vitals Vital Signs Date Time Temp Pulse Resp B/P (MAP) Pulse Ox O2 Delivery O2 Flow Rate FiO2 04/07/25 22:56 100 18 100 04/07/25 21:00 98.6 128/77 (94) 98.6 04/07/25 20:07 Nasal Cannula* 3 32 Intake/Output Intake and Output 04/07/25 07:00 Intake Total 715 ml Balance 715 ml Intake Oral 240 ml IV Total 475 ml # Voids 2 Exam Gen.: Patient lying in bed in no apparent distress. On supplemental oxygen. Head: Normocephalic, atraumatic. Eyes: EOMI/PERRLA. Ears: Normal hearing. Normal anatomy. Neck/trachea: Trachea midline, supple. Nose: Normal external anatomy. Mouth: Moist mucous membranes. Chest: Decreased air entry bilaterally. No wheezing or rhonchi. Cardiovascular: Positive S1, positive S2. Regular rate and rhythm. Abdomen: Positive bowel sounds in all 4 quadrants. Soft, non-tender, non- distended. : Deferred. Rectal: Deferred. Skin: Warm, dry. Intact. Extremities: 2+ radial pulses bilaterally. No lower extremity edema. Neuro: Awake, alert, oriented x3. No gross motor or sensory deficits. Cranial nerves II through XII intact. Gait not assessed. Medications Current Medications Medications Dose Ordered Sig/Henry Route Start Time Stop Time Status Last Admin Dose Admin Ceftriaxone Sodium 50 ml @ 100 mls/hr DAILY@09 IV 04/06/25 09:00 04/06/25 09:24 100 MLS/HR Azithromycin 250 ml @ 125 mls/hr DAILY IV 04/06/25 10:00 04/07/25 10:50 125 MLS/HR Montelukast Sodium 10 mg HS PO 04/06/25 22:00 04/07/25 21:07 10 MG Amlodipine Besylate 10 mg DAILY PO 04/06/25 10:00 04/07/25 10:50 10 MG Levothyroxine Sodium 75 mcg QAM@0600 PO 04/06/25 06:00 04/07/25 06:10 75 MCG Ondansetron HCl 4 mg Q4HP PRN IV 04/06/25 00:00 Enoxaparin Sodium 40 mg DAILY SC 04/06/25 10:00 04/07/25 10:50 40 MG Acetaminophen 650 mg Q6HP PRN PO 04/06/25 00:00 Nitroglycerin 0.4 mg Q5MINP PRN SL 04/06/25 00:00 Morphine Sulfate 2 mg Q30M PRN IV 04/06/25 00:00 Pravastatin Sodium 20 mg HS PO 04/06/25 22:00 04/07/25 21:07 20 MG Albuterol 2.5 mg Q4HR NEB 04/06/25 14:00 04/07/25 22:59 2.5 MG Ipratropium [place] 0.5 mg Q4HR NEB 04/06/25 14:00 04/07/25 22:59 0.5 MG Diagnostic Test (Pha) 1 strip BID 04/07/25 22:00 04/07/25 21:10 1 STRIP Insulin Human Regular BID SC 04/07/25 22:00 04/07/25 21:13 15 UNITS Dextrose 50 ml UD PRN IV 04/07/25 10:45 Methylprednisolone Sodium Succinate 60 mg Q12HR IV 04/07/25 22:00 04/07/25 21:07 60 MG Laboratory Results Laboratory Tests 04/07/25 10:51 Chemistry Test 04/07/25 10:51 Albumin 4.0 g/dL (3.2-4.8) Calcium Level 9.4 mg/dL (8.7-10.4) Total Protein 7.0 g/dL (5.7-8.2) LFT Test 04/07/25 10:51 Alanine Aminotransferase (ALT) 57 U/L (7-40) H Alkaline Phosphatase 273 U/L (46-116) H Aspartate Amino Transferase (AST) 48 U/L (13-40) H Total Bilirubin 0.4 mg/dL (0.2-1.0) HgA1c, TSH Test 04/07/25 10:51 Hemoglobin A1c 7.2 % A1C (<5.7) H Urinalysis Test 04/07/25 02:00 Urine Color Light-yellow (Yellow) Urine Clarity Clear (Clear) Urine pH 6.0 (5.0-9.0) Urine Specific [place] 1.035 (1.001-1.035) Urine Protein 1+ (Negative) H Urine Ketones Negative (Negative) Urine Blood 1+ /uL (Negative) H Urine Nitrite Negative (Negative) Urine Bilirubin Negative (Negative) Urine Urobilinogen Normal mg/dL (Negative) Urine Leukocyte Esterase 1+ /uL (Negative) Urine RBC 4 /hpf (0 - 4) Urine Microscopic WBC 8 /HPF (0-5) H Urine Squamous Epithelial Cells Few /hpf (<5) Urine Bacteria None seen /hpf (None Seen) Urine Glucose 4+ mg/dL (Normal) H Microbiology Microbiology Date/Time Source Procedure Growth Status 04/05/25 18:09 Blood Blood Culture - Preliminary NO GROWTH AFTER 48 HOURS OF INCUBATION. Resulted Assessment/Plan Assessment/Plan Impression: Acute hypoxic respiratory failure Dependence on supplemental oxygen Pneumonia Sepsis Leukocytosis Acute kidney injury Events: Remains on supplemental oxygen Improved oxygen requirements, Titrated off HFO2, currently on 5 LPM NC Continue to taper O2 as tolerated Continue bronchodilators Continue antibiotics WBC trended down to 21.9 K. Continue steroids - taper to q.12 hours Continue montelukast Incentive spirometry Maintain euvolemia Monitor renal function. Monitor electrolytes. Supplement as necessary. Monitor ins and outs. Patient is stable for downgrade from the pulmonary standpoint. Labs and imaging reviewed. Rest of plan as noted below. Plan: Supplemental oxygen Titrate to keep O2 sats above 92%. BiPAP PRN. CT angio results reviewed; No evidence of pulmonary embolism. Large consolidation with air bronchograms in the right upper lobe and smaller patchy airspace opacities in the right lower lobe, likely multifocal pneumonia. Linear consolidations in the basilar right middle and lower lobes with volume loss, likely atelectasis. Mild right hilar and mediastinal lymphadenopathy, likely reactive. Marked centrilobular emphysema. Mild cardiomegaly and small pericardial fluid. BLE venous Doppler reveals no evidence of DVT Continue bronchodilators IV steroids. Continue antibiotics Monitor WBC On montelukast. Monitor renal function due to [place] Follow up Nephrology recs Monitor electrolytes. Supplement as necessary. Monitor ins and outs. DVT prophylaxis. Prognosis: Poor given patient's multiple co-morbidities. Rest of plan per hospitalist and other consultants. Thank you, Dr. Queen, for allowing me to participate in this patient's care. Further recommendations will depend on the patient's clinical course. Please do not hesitate to contact me if you have any questions or concerns. This medical document was created using an electronic medical record system with [employer] computerized dictation system. Although these documentations are being carefully reviewed, there may still be some phonetic and typographical changes. The errors are purely typographical, due to imperfection on the software program, and do not reflect any compromise in the patient's medical care. Plan discussed with: Patient, Other (RN Yasmine) My Orders Orders - GABRIELLA POLLOCK MD Procedure Category Date Status Time Methylprednisolone [facility] 04/07/25 In Process Sod Succ (Solu Medrol 22:00 Visit Coding Pulmonary Billing Provider: GABRIELLA POLLOCK MD Date of Service if different f: Apr 07, 2025 Common Visit Codes: [id number] INP/OBS CARE(HIGH), [id number] CARE 30-74 MIN GABRIELLA POLLOCK MD Apr 07, 2025 23:18
[2025-04-08] VITALS (20 sets, daily range): BP systolic 122–144; BP diastolic 71–87; PULSE 87–108; RESP 16–20; TEMP 97.4–98.6; O2SAT 94–100
--- NOTE | 2025-04-08 11:50 | DVHPN2 ---
Reviewed: Care Plan, H&P, Labs, Medications, Previous Orders, Radiology Changes from previous H/P or p: No Changes Objective Vitals Vital Signs Date Time Temp Pulse Resp B/P (MAP) Pulse Ox O2 Delivery O2 Flow Rate FiO2 04/08/25 10:17 133/55 04/08/25 09:28 90 16 98 04/08/25 09:22 Nasal Cannula* 3 32 04/08/25 09:00 97.4 97.4 Intake/Output Intake and Output 04/08/25 07:00 Intake Total 1200 ml Balance 1200 ml Intake Oral 950 ml IV Total 250 ml # Voids 6 # Bowel Movements 1 Medications Current Medications Medications Dose Ordered Sig/Henry Route Start Time Stop Time Status Last Admin Dose Admin Ceftriaxone Sodium 50 ml @ 100 mls/hr DAILY@09 IV 04/06/25 09:00 04/08/25 10:20 100 MLS/HR Azithromycin 250 ml @ 125 mls/hr DAILY IV 04/06/25 10:00 04/08/25 10:20 125 MLS/HR Montelukast Sodium 10 mg HS PO 04/06/25 22:00 04/07/25 21:07 10 MG Amlodipine Besylate 10 mg DAILY PO 04/06/25 10:00 04/08/25 10:17 10 MG Levothyroxine Sodium 75 mcg QAM@0600 PO 04/06/25 06:00 04/08/25 05:39 75 MCG Ondansetron HCl 4 mg Q4HP PRN IV 04/06/25 00:00 Enoxaparin Sodium 40 mg DAILY SC 04/06/25 10:00 04/08/25 10:18 40 MG Acetaminophen 650 mg Q6HP PRN PO 04/06/25 00:00 Nitroglycerin 0.4 mg Q5MINP PRN SL 04/06/25 00:00 Morphine Sulfate 2 mg Q30M PRN IV 04/06/25 00:00 Pravastatin Sodium 20 mg HS PO 04/06/25 22:00 04/07/25 21:07 20 MG Albuterol 2.5 mg Q4HR NEB 04/06/25 14:00 04/08/25 09:22 2.5 MG Ipratropium [place] 0.5 mg Q4HR NEB 04/06/25 14:00 04/08/25 09:22 0.5 MG Diagnostic Test (Pha) 1 strip BID 04/07/25 22:00 04/08/25 10:21 1 STRIP Insulin Human Regular BID SC 04/07/25 22:00 04/08/25 10:31 12 UNITS Dextrose 50 ml UD PRN IV 04/07/25 10:45 Laboratory Results Laboratory Tests 04/07/25 10:51 Urinalysis Test 04/07/25 02:00 Urine Color Light-yellow (Yellow) Urine Clarity Clear (Clear) Urine pH 6.0 (5.0-9.0) Urine Specific [place] 1.035 (1.001-1.035) Urine Protein 1+ (Negative) H Urine Ketones Negative (Negative) Urine Blood 1+ /uL (Negative) H Urine Nitrite Negative (Negative) Urine Bilirubin Negative (Negative) Urine Urobilinogen Normal mg/dL (Negative) Urine Leukocyte Esterase 1+ /uL (Negative) Urine RBC 4 /hpf (0 - 4) Urine Microscopic WBC 8 /HPF (0-5) H Urine Squamous Epithelial Cells Few /hpf (<5) Urine Bacteria None seen /hpf (None Seen) Urine Glucose 4+ mg/dL (Normal) H Microbiology Microbiology Date/Time Source Procedure Growth Status 04/05/25 18:09 Blood Blood Culture - Preliminary NO GROWTH AFTER 48 HOURS OF INCUBATION. Resulted Labs and/or images reviewed: Labs reviewed by me, Image(s) reviewed by me Assessment/Plan Assessment/Plan Septic shock with elevated white count 51563, down to 21 K secondary to community-acquired pneumonia: Blood cultures negative, respiratory cultures pending Acute community-acquired right lower lobe pneumonia: Rocephin azithromycin albuterol Atrovent Solu-Medrol Acute hypoxic respiratory failure requiring 3 L of oxygen by nasal cannula consult for pulmonology Dr. Gómez Elevated D-dimer 4.36: DVT ruled out, PE ruled out Hypertension Hypercholesterolemia: Hypothyroidism Acute asthma exacerbation Acute Hyperglycemia with blood sugar 400 possibly secondary to Solu-Medrol: DC Solu-Medrol New onset diabetes A1c 7.2, diabetic education start metformin 850 mg p.o. b.i.d. Generalized weakness for the last one or two months: Check TSH vitamin D3 a.m. cortisone level Time Spent 70 minutes Advanced care planning time 20 minutes Patient is full code Seen in Med surg at the bedside Plan discussed with: Patient My Orders Orders - JOSH ARMSTRONG MD Procedure Category Date Status Time Metformin PHA 04/08/25 Verified Hydrochloride 18:00 Date of Service: Apr 08, 2025 Billing Provider: JOSH ARMSTRONG MD Common Visit Codes: [id number] CARE 30-74 MIN JOSH ARMSTRONG MD Apr 08, 2025 11:50
--- NOTE | 2025-04-08 17:54 | DVHPN2 ---
Progress Note - Dictate Date Seen: Apr 08, 2025 Medical Necessity Reason Pt with a Central, PICC or Fol: No vital signs Vital Sign Date Time Temp Pulse Resp B/P (MAP) Pulse Ox O2 Delivery O2 Flow Rate FiO2 04/08/25 16:36 97.8 99 20 130/71 (90) 100 97.8 04/08/25 14:25 Nasal Cannula 3.0 04/08/25 14:25 32 Total Intake and Output 04/07/25 04/07/25 04/08/25 15:00 23:00 07:00 Intake Total 250 ml 200 ml 750 ml Balance 250 ml 200 ml 750 ml medications Current Medications Medications Dose Ordered Sig/Henry Route Start Time Stop Time Status Last Admin Dose Admin Ceftriaxone Sodium 50 ml @ 100 mls/hr DAILY@09 IV 04/06/25 09:00 04/08/25 10:20 100 MLS/HR Azithromycin 250 ml @ 125 mls/hr DAILY IV 04/06/25 10:00 04/08/25 10:20 125 MLS/HR Montelukast Sodium 10 mg HS PO 04/06/25 22:00 04/07/25 21:07 10 MG Amlodipine Besylate 10 mg DAILY PO 04/06/25 10:00 04/08/25 10:17 10 MG Levothyroxine Sodium 75 mcg QAM@0600 PO 04/06/25 06:00 04/08/25 05:39 75 MCG Ondansetron HCl 4 mg Q4HP PRN IV 04/06/25 00:00 Enoxaparin Sodium 40 mg DAILY SC 04/06/25 10:00 04/08/25 10:18 40 MG Acetaminophen 650 mg Q6HP PRN PO 04/06/25 00:00 Nitroglycerin 0.4 mg Q5MINP PRN SL 04/06/25 00:00 Morphine Sulfate 2 mg Q30M PRN IV 04/06/25 00:00 Pravastatin Sodium 20 mg HS PO 04/06/25 22:00 04/07/25 21:07 20 MG Albuterol 2.5 mg Q4HR NEB 04/06/25 14:00 04/08/25 14:25 2.5 MG Ipratropium [place] 0.5 mg Q4HR NEB 04/06/25 14:00 04/08/25 14:25 0.5 MG Diagnostic Test (Pha) 1 strip BID 04/07/25 22:00 04/08/25 10:21 1 STRIP Insulin Human Regular BID SC 04/07/25 22:00 04/08/25 10:31 12 UNITS Dextrose 50 ml UD PRN IV 04/07/25 10:45 Metformin HCl 850 mg BIDWM PO 04/08/25 18:00 04/08/25 16:42 850 MG laboratory and microbiology Laboratory Tests 04/07/25 10:51 Test 04/07/25 10:51 Range/Units Serum Glucose 304 H 74-106 mg/dL Assessment/Plan Impression Acute hypoxemic respiratory failure Acute Kidney Injury Pneumonia Sepsis Patient seen and examined Events Low oxygen requirements On 3 liters nasal cannula No acute events Labs and imaging reviewed CT angio results reviewed; No evidence of pulmonary embolism. Large consolidation with air bronchograms in the right upper lobe and smaller patchy airspace opacities in the right lower lobe, likely multifocal pneumonia. Linear consolidations in the basilar right middle and lower lobes with volume loss, likely atelectasis. Mild right hilar and mediastinal lymphadenopathy, likely reactive. Marked centrilobular emphysema. Mild cardiomegaly and small pericardial fluid. Management Supplemental oxygen Titrate to maintain sats 90% or above Incentive spirometry Continue antibiotics F/u cultures Bronchodilators Monitor renal function Monitor electrolytes Supplement as needed DVT prophylaxis Plan discussed with: Patient CYO BRUNSON MD Apr 08, 2025 17:54
[2025-04-09] VITALS (21 sets, daily range): BP systolic 114–144; BP diastolic 64–86; PULSE 84–114; RESP 12–20; TEMP 98–98.5; O2SAT 91–98
[2025-04-09 09:49] LABS: Hematocrit 37.8 % (36.0-46.0); Hemoglobin 12.2 g/dL (12.2-16.2); Mean Corpuscular Hemoglobin 25.8 pg (28.0-32.0); Mean Corpuscular Volume 79.9 fL (80.0-100.0); Nucleated Red Blood Cells % 0.1 %
[2025-04-09 09:54] LABS: Anion Gap 10 (5-15); BUN/Creatinine Ratio 15.0 (10.0-20.0); Bilirubin, Total 0.5 mg/dL (0.2-1.0); Calcium 9.3 mg/dL (8.7-10.4); Potassium 3.5 mmol/L (3.5-5.1); Sodium 137 mmol/L (136-145); Total Protein 6.3 g/dL (5.7-8.2)
[2025-04-09 09:55] LABS: Alanine Aminotransferase 54 U/L (7-40); Alkaline Phosphatase 207 U/L (46-116); Blood Urea Nitrogen 9 mg/dL (9-23); Carbon Dioxide 32 mmol/L (20-31); Chloride 95 mmol/L (98-107); Glucose 119 mg/dL (74-106)
--- NOTE | 2025-04-09 09:58 | DVHPN2 ---
Progress Note - Dictate Date Seen: Apr 09, 2025 Medical Necessity Reason Pt with a Central, PICC or Fol: No vital signs Vital Sign Date Time Temp Pulse Resp B/P (MAP) Pulse Ox O2 Delivery O2 Flow Rate FiO2 04/09/25 09:33 142/77 04/09/25 09:00 98.5 100 20 95 98.5 04/09/25 02:05 Nasal Cannula* 3 32 Total Intake and Output 04/08/25 04/08/25 04/09/25 15:00 23:00 07:00 Intake Total 300 ml 1250 ml 200 ml Balance 300 ml 1250 ml 200 ml medications Current Medications Medications Dose Ordered Sig/Henry Route Start Time Stop Time Status Last Admin Dose Admin Ceftriaxone Sodium 50 ml @ 100 mls/hr DAILY@09 IV 04/06/25 09:00 04/09/25 09:32 100 MLS/HR Azithromycin 250 ml @ 125 mls/hr DAILY IV 04/06/25 10:00 04/09/25 09:32 125 MLS/HR Montelukast Sodium 10 mg HS PO 04/06/25 22:00 04/08/25 20:55 10 MG Amlodipine Besylate 10 mg DAILY PO 04/06/25 10:00 04/09/25 09:33 10 MG Levothyroxine Sodium 75 mcg QAM@0600 PO 04/06/25 06:00 04/09/25 06:04 75 MCG Ondansetron HCl 4 mg Q4HP PRN IV 04/06/25 00:00 Enoxaparin Sodium 40 mg DAILY SC 04/06/25 10:00 04/09/25 09:32 40 MG Acetaminophen 650 mg Q6HP PRN PO 04/06/25 00:00 Nitroglycerin 0.4 mg Q5MINP PRN SL 04/06/25 00:00 Morphine Sulfate 2 mg Q30M PRN IV 04/06/25 00:00 Pravastatin Sodium 20 mg HS PO 04/06/25 22:00 04/08/25 20:55 20 MG Albuterol 2.5 mg Q4HR NEB 04/06/25 14:00 04/09/25 09:46 2.5 MG Ipratropium [place] 0.5 mg Q4HR NEB 04/06/25 14:00 04/09/25 09:46 0.5 MG Diagnostic Test (Pha) 1 strip BID 04/07/25 22:00 04/09/25 09:42 1 STRIP Insulin Human Regular BID SC 04/07/25 22:00 04/08/25 21:01 15 UNITS Dextrose 50 ml UD PRN IV 04/07/25 10:45 Metformin HCl 850 mg BIDWM PO 04/08/25 18:00 04/09/25 09:34 850 MG laboratory and microbiology Laboratory Tests 04/09/25 08:59 Test 04/09/25 08:59 Range/Units Serum Glucose 119 H 74-106 mg/dL Assessment/Plan Impression Acute hypoxemic respiratory failure Acute Kidney Injury Pneumonia Sepsis Patient seen and examined Events Low oxygen requirements On 3 liters nasal cannula No acute events Labs and imaging reviewed CT angio results reviewed; No evidence of pulmonary embolism. Large consolidation with air bronchograms in the right upper lobe and smaller patchy airspace opacities in the right lower lobe, likely multifocal pneumonia. Linear consolidations in the basilar right middle and lower lobes with volume loss, likely atelectasis. Mild right hilar and mediastinal lymphadenopathy, likely reactive. Marked centrilobular emphysema. Mild cardiomegaly and small pericardial fluid. Management Supplemental oxygen Titrate to maintain sats 90% or above Incentive spirometry Continue antibiotics F/u cultures Bronchodilators Monitor renal function Monitor electrolytes Supplement as needed DVT prophylaxis Plan discussed with: Patient COY BRUNSON MD Apr 09, 2025 09:57
--- NOTE | 2025-04-09 10:39 | DVHPN2 ---
Reviewed: Care Plan, H&P, Labs, Medications, Previous Orders, Radiology Changes from previous H/P or p: No Changes Objective Vitals Vital Signs Date Time Temp Pulse Resp B/P (MAP) Pulse Ox O2 Delivery O2 Flow Rate FiO2 04/09/25 09:33 142/77 04/09/25 09:00 98.5 100 20 95 98.5 04/09/25 02:05 Nasal Cannula* 3 32 Intake/Output Intake and Output 04/09/25 07:00 Intake Total 1750 ml Balance 1750 ml Intake Oral 1450 ml IV Total 300 ml # Voids 8 # Bowel Movements 4 Medications Current Medications Medications Dose Ordered Sig/Henry Route Start Time Stop Time Status Last Admin Dose Admin Ceftriaxone Sodium 50 ml @ 100 mls/hr DAILY@09 IV 04/06/25 09:00 04/09/25 09:32 100 MLS/HR Azithromycin 250 ml @ 125 mls/hr DAILY IV 04/06/25 10:00 04/09/25 09:32 125 MLS/HR Montelukast Sodium 10 mg HS PO 04/06/25 22:00 04/08/25 20:55 10 MG Amlodipine Besylate 10 mg DAILY PO 04/06/25 10:00 04/09/25 09:33 10 MG Levothyroxine Sodium 75 mcg QAM@0600 PO 04/06/25 06:00 04/09/25 06:04 75 MCG Ondansetron HCl 4 mg Q4HP PRN IV 04/06/25 00:00 Enoxaparin Sodium 40 mg DAILY SC 04/06/25 10:00 04/09/25 09:32 40 MG Acetaminophen 650 mg Q6HP PRN PO 04/06/25 00:00 Nitroglycerin 0.4 mg Q5MINP PRN SL 04/06/25 00:00 Morphine Sulfate 2 mg Q30M PRN IV 04/06/25 00:00 Pravastatin Sodium 20 mg HS PO 04/06/25 22:00 04/08/25 20:55 20 MG Albuterol 2.5 mg Q4HR NEB 04/06/25 14:00 04/09/25 09:46 2.5 MG Ipratropium [place] 0.5 mg Q4HR NEB 04/06/25 14:00 04/09/25 09:46 0.5 MG Diagnostic Test (Pha) 1 strip BID 04/07/25 22:00 04/09/25 09:42 1 STRIP Insulin Human Regular BID SC 04/07/25 22:00 04/08/25 21:01 15 UNITS Dextrose 50 ml UD PRN IV 04/07/25 10:45 Metformin HCl 850 mg BIDWM PO 04/08/25 18:00 04/09/25 09:34 850 MG Laboratory Results Laboratory Tests 04/09/25 08:59 Chemistry Test 04/09/25 08:59 Albumin Pending Calcium Level 9.3 mg/dL (8.7-10.4) Total Protein 6.3 g/dL (5.7-8.2) LFT Test 04/09/25 08:59 Alanine Aminotransferase (ALT) 54 U/L (7-40) H Alkaline Phosphatase 207 U/L (46-116) H Aspartate Amino Transferase (AST) 32 U/L (13-40) Total Bilirubin 0.5 mg/dL (0.2-1.0) HgA1c, TSH Test 04/08/25 15:00 Thyroid Stimulating Hormone (TSH) 0.14 uIU/mL (0.55-4.78) L Urinalysis Test 04/07/25 02:00 Urine Color Light-yellow (Yellow) Urine Clarity Clear (Clear) Urine pH 6.0 (5.0-9.0) Urine Specific [place] 1.035 (1.001-1.035) Urine Protein 1+ (Negative) H Urine Ketones Negative (Negative) Urine Blood 1+ /uL (Negative) H Urine Nitrite Negative (Negative) Urine Bilirubin Negative (Negative) Urine Urobilinogen Normal mg/dL (Negative) Urine Leukocyte Esterase 1+ /uL (Negative) Urine RBC 4 /hpf (0 - 4) Urine Microscopic WBC 8 /HPF (0-5) H Urine Squamous Epithelial Cells Few /hpf (<5) Urine Bacteria None seen /hpf (None Seen) Urine Glucose 4+ mg/dL (Normal) H Microbiology Microbiology Date/Time Source Procedure Growth Status 04/06/25 11:47 Sputum Gram Stain - Final Resulted 04/06/25 11:47 Sputum Respiratory Culture - Preliminary Resulted 04/05/25 18:09 Blood Blood Culture - Preliminary NO GROWTH AFTER 72 HOURS OF INCUBATION. Resulted Labs and/or images reviewed: Labs reviewed by me, Image(s) reviewed by me Assessment/Plan Assessment/Plan Septic shock with elevated white count 69701, down to 12 K secondary to community-acquired pneumonia: Blood cultures negative, respiratory cultures negative Acute community-acquired right lower lobe pneumonia: Rocephin azithromycin albuterol Atrovent Solu-Medrol Acute hypoxic respiratory failure requiring 3 L of oxygen by nasal cannula consult for pulmonology Dr. Gómez Elevated D-dimer 4.36: DVT ruled out, PE ruled out Hypertension Hypercholesterolemia: Hypothyroidism Acute asthma exacerbation Acute Hyperglycemia with blood sugar 400 possibly secondary to Solu-Medrol: DC Solu-Medrol New onset diabetes A1c 7.2, diabetic education start metformin 850 mg p.o. b.i.d. Generalized weakness for the last one or two months: Mild hyperthyroidism TSH 0.14, endocrinology follow up as an outpatient Vitamin D3 levels normal Cortisone Levels pending Time Spent 60 minutes Advanced care planning time 20 minutes Patient is full code Seen in Med surg [place] at the bedside Physical therapy ordered Patient Does not want to go to [facility] facility for rehab Discharged home on home health Plan discussed with: Patient My Orders Orders - JOSH ARMSTRONG MD Procedure Category Date Status Time Metformin PHA 04/08/25 In Process Hydrochloride 18:00 Complete Blood Count LAB 04/10/25 Verified 05:00 Complete Blood Count LAB 04/11/25 Verified 05:00 Comprehensive LAB 04/09/25 In Process Metabolic Panel 05:00 Comprehensive LAB 04/10/25 Verified Metabolic Panel 05:00 Comprehensive LAB 04/11/25 Verified Metabolic Panel 05:00 Pt Request For Service PT 04/08/25 Logged 11:48 Provide Diabetic ORDERS 04/08/25 Transmitted Education 11:48 *Rn [employer] T[employer] REFER 04/08/25 Transmitted Referral 11:48 Abg W/ Co-Ox RT 04/09/25 Logged 10:31 Date of Service: Apr 09, 2025 Billing Provider: JOSH ARMSTRONG MD Common Visit Codes: [id number] CARE 30-74 MIN JOSH ARMSTRONG MD Apr 09, 2025 10:39
[2025-04-09] MEDS ORDERED: AZIT500T66 PO (10:43)
[2025-04-09] MEDS ORDERED: ALBUAER3 IN (10:43)
[2025-04-09] MEDS ORDERED: METF-372 PO (10:43)
[2025-04-09] MEDS ORDERED: PRED20TA2 PO (10:44)
[2025-04-09 10:51] LABS: Albumin 3.8 g/dL (3.2-4.8)
[2025-04-09] MEDS ORDERED: LEVO-848 PO (10:52)
[2025-04-09 16:02] LABS: Base Excess 8.0 mmol/L (-2.0-3.0)
[2025-04-09] MEDS: ACETAMINOPHEN 325 MG TAB PO PRN (22:41)
[2025-04-10] VITALS (20 sets, daily range): BP systolic 116–135; BP diastolic 65–87; PULSE 68–112; RESP 14–19; TEMP 97.5–98.6; O2SAT 90–98
[2025-04-10 07:49] LABS: Hematocrit 37.9 % (36.0-46.0); Hemoglobin 12.6 g/dL (12.2-16.2); Mean Corpuscular Hemoglobin 26.6 pg (28.0-32.0); Mean Corpuscular Volume 79.9 fL (80.0-100.0)
[2025-04-10 08:01] LABS: Albumin 3.5 g/dL (3.2-4.8); Anion Gap 10 (5-15); BUN/Creatinine Ratio 19.7 (10.0-20.0); Bilirubin, Total 0.5 mg/dL (0.2-1.0); Blood Urea Nitrogen 13 mg/dL (9-23); Calcium 8.8 mg/dL (8.7-10.4); Sodium 137 mmol/L (136-145); Total Protein 5.9 g/dL (5.7-8.2)
[2025-04-10 08:03] LABS: Alanine Aminotransferase 41 U/L (7-40); Alkaline Phosphatase 181 U/L (46-116); Carbon Dioxide 33 mmol/L (20-31); Chloride 94 mmol/L (98-107); Glucose 106 mg/dL (74-106); Potassium 3.4 mmol/L (3.5-5.1)
[2025-04-10 08:47] LABS: Total Cells Counted 100.0 (100)
[2025-04-10 08:48] LABS: RBC Morphology Normal
--- NOTE | 2025-04-10 11:32 | DVHPN2 ---
Reviewed: Care Plan, H&P, Labs, Medications, Previous Orders, Radiology Changes from previous H/P or p: No Changes Objective Vitals Vital Signs Date Time Temp Pulse Resp B/P (MAP) Pulse Ox O2 Delivery O2 Flow Rate FiO2 04/10/25 10:44 114/72 04/10/25 10:01 97 18 96 04/10/25 09:55 Nasal Cannula* 4 36 04/10/25 09:00 98.2 98.2 Intake/Output Intake and Output 04/10/25 07:00 Intake Total 700 ml Balance 700 ml Intake Oral 400 ml IV Total 300 ml # Voids 7 # Bowel Movements 1 Medications Current Medications Medications Dose Ordered Sig/Henry Route Start Time Stop Time Status Last Admin Dose Admin Ceftriaxone Sodium 50 ml @ 100 mls/hr DAILY@09 IV 04/06/25 09:00 04/10/25 08:41 100 MLS/HR Azithromycin 250 ml @ 125 mls/hr DAILY IV 04/06/25 10:00 04/10/25 10:45 125 MLS/HR Montelukast Sodium 10 mg HS PO 04/06/25 22:00 04/09/25 21:26 10 MG Amlodipine Besylate 10 mg DAILY PO 04/06/25 10:00 04/10/25 10:44 10 MG Levothyroxine Sodium 75 mcg QAM@0600 PO 04/06/25 06:00 04/09/25 06:04 75 MCG Ondansetron HCl 4 mg Q4HP PRN IV 04/06/25 00:00 Enoxaparin Sodium 40 mg DAILY SC 04/06/25 10:00 04/10/25 10:54 40 MG Acetaminophen 650 mg Q6HP PRN PO 04/06/25 00:00 04/09/25 22:41 650 MG Nitroglycerin 0.4 mg Q5MINP PRN SL 04/06/25 00:00 Morphine Sulfate 2 mg Q30M PRN IV 04/06/25 00:00 Pravastatin Sodium 20 mg HS PO 04/06/25 22:00 04/09/25 21:26 20 MG Albuterol 2.5 mg Q4HR NEB 04/06/25 14:00 04/10/25 09:55 2.5 MG Ipratropium [place] 0.5 mg Q4HR NEB 04/06/25 14:00 04/10/25 09:55 0.5 MG Diagnostic Test (Pha) 1 strip BID 04/07/25 22:00 04/10/25 11:00 1 STRIP Insulin Human Regular BID SC 04/07/25 22:00 04/10/25 11:02 2 UNITS Dextrose 50 ml UD PRN IV 04/07/25 10:45 Metformin HCl 850 mg BIDWM PO 04/08/25 18:00 04/10/25 08:38 850 MG Laboratory Results Laboratory Tests 04/10/25 06:02 Chemistry Test 04/10/25 06:02 Albumin 3.5 g/dL (3.2-4.8) Calcium Level 8.8 mg/dL (8.7-10.4) Total Protein 5.9 g/dL (5.7-8.2) LFT Test 04/10/25 06:02 Alanine Aminotransferase (ALT) 41 U/L (7-40) H Alkaline Phosphatase 181 U/L (46-116) H Aspartate Amino Transferase (AST) 19 U/L (13-40) Total Bilirubin 0.5 mg/dL (0.2-1.0) Urinalysis Test 04/07/25 02:00 Urine Color Light-yellow (Yellow) Urine Clarity Clear (Clear) Urine pH 6.0 (5.0-9.0) Urine Specific [place] 1.035 (1.001-1.035) Urine Protein 1+ (Negative) H Urine Ketones Negative (Negative) Urine Blood 1+ /uL (Negative) H Urine Nitrite Negative (Negative) Urine Bilirubin Negative (Negative) Urine Urobilinogen Normal mg/dL (Negative) Urine Leukocyte Esterase 1+ /uL (Negative) Urine RBC 4 /hpf (0 - 4) Urine Microscopic WBC 8 /HPF (0-5) H Urine Squamous Epithelial Cells Few /hpf (<5) Urine Bacteria None seen /hpf (None Seen) Urine Glucose 4+ mg/dL (Normal) H Blood Gas Results Test 04/09/25 15:54 Arterial Blood pH 7.488 (7.350-7.450) FiO2 % 21.0 Microbiology Microbiology Date/Time Source Procedure Growth Status 04/06/25 11:47 Sputum Gram Stain - Final Resulted 04/06/25 11:47 Sputum Respiratory Culture - Preliminary Resulted 04/05/25 18:09 Blood Blood Culture - Preliminary NO GROWTH AFTER 72 HOURS OF INCUBATION. Resulted Labs and/or images reviewed: Labs reviewed by me, Image(s) reviewed by me Assessment/Plan Assessment/Plan Septic shock with elevated white count 70729, down to 12 K secondary to community-acquired pneumonia: Blood cultures negative, respiratory cultures negative Acute community-acquired right lower lobe pneumonia: Rocephin azithromycin albuterol Atrovent Solu-Medrol Acute hypoxic respiratory failure requiring 3 L of oxygen by nasal cannula consult for pulmonology Dr. Gómez Elevated D-dimer 4.36: DVT ruled out, PE ruled out Hypertension Hypercholesterolemia: Hypothyroidism Iatrogenic hyperthyroidism TSH 0.14 patient is currently taking Synthroid 75 mcg a day, will hold Synthroid for two weeks and resume at 50 mcg a day Acute asthma exacerbation Mild hypoadrenocorticsm, with a.m. cortisol of 3.76 which explains her generalized weakness for the last one month, advised to follow up with the manufacturing quality manager as an outpatient Acute Hyperglycemia with blood sugar 400 possibly secondary to Solu-Medrol: DC Solu-Medrol New onset diabetes A1c 7.2, diabetic education start metformin 850 mg p.o. b.i.d. Generalized weakness for the last one or two months: Vitamin D3 levels normal Time Spent 60 minutes Advanced care planning time 20 minutes Patient is full code Seen in Med surg [place] at the bedside Physical therapy ordered Patient Does not want to go to prison facility for rehab Discharged home on home health Plan discussed with: Patient Date of Service: Apr 10, 2025 Billing Provider: JOSH ARMSTRONG MD Common Visit Codes: [id number] INP/OBS CARE(HIGH) JOSH ARMSTRONG MD Apr 10, 2025 11:32
--- NOTE | 2025-04-10 12:01 | DVHPN2 ---
Progress Note - Dictate Date Seen: Apr 10, 2025 Medical Necessity Reason Pt with a Central, PICC or Fol: No vital signs Vital Sign Date Time Temp Pulse Resp B/P (MAP) Pulse Ox O2 Delivery O2 Flow Rate FiO2 04/10/25 10:44 114/72 04/10/25 10:01 97 18 96 04/10/25 09:55 Nasal Cannula* 4 36 04/10/25 09:00 98.2 98.2 Total Intake and Output 04/09/25 04/09/25 04/10/25 15:00 23:00 07:00 Intake Total 300 ml 300 ml 100 ml Balance 300 ml 300 ml 100 ml medications Current Medications Medications Dose Ordered Sig/Henry Route Start Time Stop Time Status Last Admin Dose Admin Ceftriaxone Sodium 50 ml @ 100 mls/hr DAILY@09 IV 04/06/25 09:00 04/10/25 08:41 100 MLS/HR Azithromycin 250 ml @ 125 mls/hr DAILY IV 04/06/25 10:00 04/10/25 10:45 125 MLS/HR Montelukast Sodium 10 mg HS PO 04/06/25 22:00 04/09/25 21:26 10 MG Amlodipine Besylate 10 mg DAILY PO 04/06/25 10:00 04/10/25 10:44 10 MG Ondansetron HCl 4 mg Q4HP PRN IV 04/06/25 00:00 Enoxaparin Sodium 40 mg DAILY SC 04/06/25 10:00 04/10/25 10:54 40 MG Acetaminophen 650 mg Q6HP PRN PO 04/06/25 00:00 04/09/25 22:41 650 MG Nitroglycerin 0.4 mg Q5MINP PRN SL 04/06/25 00:00 Morphine Sulfate 2 mg Q30M PRN IV 04/06/25 00:00 Pravastatin Sodium 20 mg HS PO 04/06/25 22:00 04/09/25 21:26 20 MG Albuterol 2.5 mg Q4HR NEB 04/06/25 14:00 04/10/25 09:55 2.5 MG Ipratropium [place] 0.5 mg Q4HR NEB 04/06/25 14:00 04/10/25 09:55 0.5 MG Diagnostic Test (Pha) 1 strip BID 04/07/25 22:00 04/10/25 11:00 1 STRIP Insulin Human Regular BID SC 04/07/25 22:00 04/10/25 11:02 2 UNITS Dextrose 50 ml UD PRN IV 04/07/25 10:45 Metformin HCl 850 mg BIDWM PO 04/08/25 18:00 04/10/25 08:38 850 MG Hydrocortisone Sodium Succinate 50 mg Q8HR IV 04/10/25 14:00 laboratory and microbiology Laboratory Tests 04/10/25 06:02 Test 04/10/25 06:02 Range/Units Serum Glucose 106 74-106 mg/dL Assessment/Plan Impression Acute hypoxemic respiratory failure Acute Kidney Injury Pneumonia Sepsis Patient seen and examined Events Low oxygen requirements On 3 liters nasal cannula No distress Labs and imaging reviewed CT angio results reviewed; No evidence of pulmonary embolism. Large consolidation with air bronchograms in the right upper lobe and smaller patchy airspace opacities in the right lower lobe, likely multifocal pneumonia. Linear consolidations in the basilar right middle and lower lobes with volume loss, likely atelectasis. Mild right hilar and mediastinal lymphadenopathy, likely reactive. Marked centrilobular emphysema. Mild cardiomegaly and small pericardial fluid. Management Supplemental oxygen Titrate to maintain sats 90% or above Incentive spirometry Continue antibiotics F/u cultures Bronchodilators Monitor renal function Monitor electrolytes Supplement as needed Disposition as per primary DVT prophylaxis Dietary Evaluation Review Comments: Nutrition Recommendation: 1) CCHO 45gm + cardiac diet 2) Monitor PO intake, lab values, weight trend, and I/O Expected Outcomes/Goals: Intake to meet >75% estimated needs Lab values to improve FU 3-5 days Plan discussed with: Patient COY BRUNSON MD Apr 10, 2025 12:01
[2025-04-10] MEDS: HYDROCORTISONE SOD SUCC 100 MG/2ML INJ VIAL IV SCH (14:30)
--- NOTE | 2025-04-10 16:20 | DVHINCON2 ---
Date of service: Apr 10, 2025 History of Present Illness 74yo F w/ hx of asthma, HTN, hypothyroidism, HLD who presented to the hospital with dyspnea and weakness x 1 mo. Patient found to be in septic shock due to community acquired PNA. Since admission she has been treated with supplemental oxygen, steroids, IV abx. On 04/09 patient had cortisol measured at 9am found to be 3.8. No overt hypotension currently or electrolyte disturbances. Notably patient had been on prednisone for asthma exacerbation for 4 days prior to admission. Patient also s/p IV solumedrol 04/07 and 04/06. Denies prior hx of chronic steroid use. Past Medical History Problems Medical Problems: (1) Hypoxia Status: Acute (2) Right middle lobe pneumonia Status: Acute Past Surgical History Past Surgical History Medical Problems: (1) Hypoxia Status: Acute (2) Right middle lobe pneumonia Status: Acute Family History: Asthma G8 MOTHER G8 FATHER Allergies: Coded Allergies: Aspirin (Verified Allergy, Unknown, 04/05/25) Home Meds Active Scripts Levothyroxine Sodium (SYNTHROID TABLET) 50 Mcg Tb, 1 TAB PO DAILY, #90 TAB 3 Refills Prov:JOSH WHITE MD 04/09/25 Prednisone (Prednisone) 20 Mg Tab, 20 MG PO DAILY, #10 MG Prov:JOSH WHITE MD 04/09/25 Metformin Hydrochloride (Metformin Hcl) 1,000 Mg Tab, 1 TAB PO BID, #180 TAB 1 Refill Prov:JOSH WHITE MD 04/09/25 Azithromycin (Azithromycin) 500 Mg Tab, 1 TAB PO DAILY, #7 TAB Prov:JOSH WHITE MD 04/09/25 Reported Medications Montelukast Sodium (MONTELUKAST SODIUM) 10 Mg Tab, 1 TAB PO DAILY 04/07/25 Albuterol Sulfate (Proair Respiclick) 108 Mcg/Act Aer, INH 04/07/25 Montelukast Sodium (Singulair) 10 Mg Tab, 1 TAB PO DAILY 04/07/25 Levothyroxine Sodium (Synthroid) 75 Mcg Tab, 1 TAB PO DAILY 04/07/25 Amlodipine Besylate (Amlodipine Besylate) 10 Mg Tab, 1 TAB PO DAILY 04/07/25 Prednisone (Prednisone) 10 Mg Tab, 1 TAB PO DAILY 04/07/25 Azithromycin (Azithromycin) 250 Mg Tab, 1 TAB PO UD 04/07/25 Current Medications Current Medications Medications (Trade) Dose Ordered Sig/Henry Route PRN Reason Start Time Stop Time Status Last Admin Hydrocortisone Sodium Succinate (Solu-CORTEF INJECTION) 50 mg Q8HR IV 04/10/25 14:00 Review of Systems Negative except that which is stated in HPI Vital Signs Vital Signs Date Time Temp Pulse Resp B/P (MAP) Pulse Ox O2 Delivery O2 Flow Rate FiO2 04/10/25 13:38 108 18 94 04/10/25 13:32 Nasal Cannula* 4 36 04/10/25 13:00 97.5 133/81 (98) 97.5 Physical Exam Gen - no acute distress HEENT - no thyromegaly CV - RRR, no m/r/g Resp - CTAB Ext - no edema Labs/Diagnostic Data Labs Test 04/10/25 10:52 04/10/25 06:02 04/09/25 15:54 04/09/25 08:59 Range/Units POC Glucose 151 H 70-106 mg/dl White Blood Count 9.6 4.4-10.8 10^3/uL Red Blood Count 4.74 4.0-5.20 10^6/uL Hemoglobin 12.6 12.2-16.2 g/dL Hematocrit 37.9 36.0-46.0 % Mean Corpuscular Volume 79.9 L 80.0-100.0 fL Mean Corpuscular Hemoglobin 26.6 L 28.0-32.0 pg Mean Corpuscular Hemoglobin Concent 33.2 32.0-36.0 g/dL Red Cell Distribution Width 16.2 H 11.8-14.3 % Platelet Count 397 140-450 10^3/uL Mean Platelet Volume 7.0 6.9-10.8 fL Neutrophils (%) (Auto) 37.0-80.0 % Lymphocytes (%) (Auto) 10.0-50.0 % Monocytes (%) (Auto) 0.0-12.0 % Basophils (%) (Auto) 0.0-2.0 % Neutrophils # (Auto) 1.6-8.6 10 ^3/uL Lymphocytes # (Auto) 0.4-5.4 10 ^3/uL Monocytes # (Auto) 0-1.3 10 ^3/uL Differential Total Cells Counted 100.0 100 Neutrophils % (Manual) 70 37.0-80.0 Band Neutrophils % (Manual) 0 Lymphocytes % (Manual) 18 10.0-50.0 Monocytes % (Manual) 6 0-12 Eosinophils % (Manual) 1 0-7 Basophils % (Manual) 0 0.0-2.0 Metamyelocytes % (manual) 0 Myelocytes % (Manual) 0 Promyelocytes % (Manual) 0 Blast Cells % (Manual) 0 Reactive Lymphocytes 5 Platelet Estimate Adequate Red Blood Cell Morphology Normal Sodium Level 137 136-145 mmol/L Potassium Level 3.4 L 3.5-5.1 mmol/L Chloride Level 94 L 98-107 mmol/L Carbon Dioxide Level 33 H 20-31 mmol/L Anion Gap 10 5-15 Blood Urea Nitrogen 13 9-23 mg/dL Creatinine 0.66 0.550-1.02 mg/dL Glomerular Filtration Rate Calc 91 >90 mL/min BUN/Creatinine Ratio 19.7 10.0-20.0 Serum Glucose 106 74-106 mg/dL Calcium Level 8.8 8.7-10.4 mg/dL Total Bilirubin 0.5 0.2-1.0 mg/dL Aspartate Amino Transferase (AST) 19 13-40 U/L Alanine Aminotransferase (ALT) 41 H 7-40 U/L Alkaline Phosphatase 181 H 46-116 U/L Total Protein 5.9 5.7-8.2 g/dL Albumin 3.5 3.2-4.8 g/dL Blood Gas Specimen Type Arterial Blood Gas Sample Site Right brachial Blood Gas Patient Temperature 37.0 Arterial Blood Date Drawn [id number] Arterial Blood pH 7.488 H 7.350-7.450 Arterial Blood Partial Pressure CO2 43.6 32.0-45.0 mmHg Arterial Blood Partial Pressure O2 44.2 *L 83.0-108.0 mmHg Arterial Blood HCO3 32.3 H 21.0-28.0 mmol/L Arterial Blood Oxygen Saturation 80.6 *L 94.0-98.0 % Arterial Blood Base Excess 8.0 H -2.0-3.0 mmol/L Arterial Blood Oxyhemoglobin 79.5 L 94.0-98.0 % Arterial Blood Carboxyhemoglobin 0.9 0.5-1.5 % Arterial Blood Methemoglobin 0.5 0.0-1.5 % Dexter Test Yes Blood Gas Total Hemoglobin 13.90 12.0-16.0 g/dL Blood Gas Modality Room air FiO2 % 21.0 Blood Gas Critical Value Read Back Yes Blood Gas Notified Whom Dr. olivia white Blood Gas Notified Time [id number] Blood Gas Notified By Eosinophils (%) (Auto) 0.3 0.0-7.0 % Eosinophils # (Auto) 0 0-0.8 10 ^3/uL Basophils # (Auto) 0 0-0.2 10 ^3/uL Nucleated Red Blood Cells 0.1 % Cortisol AM Sample 3.76 L 5.27-22.45 ug/dL Test 04/08/25 15:00 04/07/25 12:00 04/07/25 10:51 04/07/25 02:00 Range/Units Vitamin D 25-Hydroxy 76.5 30.0-100 ng/mL Thyroid Stimulating Hormone (TSH) 0.14 L 0.55-4.78 uIU/mL Influenza Type A Antigen Negative Negative Influenza Type B Antigen Negative Negative SARS-CoV-2 Antigen (Rapid) Negative NEGATIVE Hemoglobin A1c 7.2 H <5.7 % A1C Urine Color Light-yellow Yellow Urine Clarity Clear Clear Urine pH 6.0 5.0-9.0 Urine Specific [place] 1.035 1.001-1.035 Urine Protein 1+ H Negative Urine Ketones Negative Negative Urine Blood 1+ H Negative /uL Urine Nitrite Negative Negative Urine Bilirubin Negative Negative Urine Urobilinogen Normal Negative mg/dL Urine Leukocyte Esterase 1+ Negative /uL Urine RBC 4 0 - 4 /hpf Urine Microscopic WBC 8 H 0-5 /HPF Urine Squamous Epithelial Cells Few <5 /hpf Urine Bacteria None seen None Seen /hpf Urine Glucose 4+ H Normal mg/dL Test 04/06/25 05:29 04/05/25 19:14 04/05/25 18:09 Range/Units Large Platelets Few Giant Platelets Few Microcytosis Slight D-Dimer, Quantitative 4.36 H 0.0-0.49 mg/L FEU Troponin I High Sensitivity < 3 L </=34 ng/L Anisocytosis (manual) Slight Lactic Acid Level 1.4 0.4-2.0 mmol/L B-Type Natriuretic Peptide 21.32 0-100 pg/mL Microbiology Date/Time Source Procedure Growth Status 04/06/25 11:47 Sputum Gram Stain - Final Resulted 04/06/25 11:47 Sputum Respiratory Culture - Preliminary Resulted 04/05/25 18:09 Blood Blood Culture - Preliminary NO GROWTH AFTER 72 HOURS OF INCUBATION. Resulted Assessment # Community acquired PNA # Septic shock # HTN # HLD # Type II DM - AM cortisol low likely iatreognically due to recent exogenous steroid usage. No ongoing s/s of AI at this time. No indication for repeat steroid dosing at this time. May consider repeat outpatient AM cortisol in 6 weeks post discharge if clinically indicated. - Continue IV abx per primary - SSI insulin for steroid induced hyperglycemia. OK to resume home pharmacotherapy upon discharge. Plan discussed with: Other SANTHOSH CALL MD Apr 10, 2025 16:20
[2025-04-11] VITALS (19 sets, daily range): BP systolic 121–137; BP diastolic 61–80; PULSE 92–109; RESP 16–21; TEMP 96.6–98.4; O2SAT 90–100
[2025-04-11 06:23] LABS: Hematocrit 37.7 % (36.0-46.0); Hemoglobin 12.2 g/dL (12.2-16.2); Mean Corpuscular Hemoglobin 26.1 pg (28.0-32.0); Mean Corpuscular Volume 80.6 fL (80.0-100.0); Nucleated Red Blood Cells % 0.0 %
[2025-04-11 06:42] LABS: Alanine Aminotransferase 37 U/L (7-40); Albumin 3.5 g/dL (3.2-4.8); Anion Gap 10 (5-15); BUN/Creatinine Ratio 13.3 (10.0-20.0); Calcium 8.9 mg/dL (8.7-10.4); Carbon Dioxide 30 mmol/L (20-31); Potassium 3.6 mmol/L (3.5-5.1); Total Protein 5.7 g/dL (5.7-8.2)
[2025-04-11 06:43] LABS: Bilirubin, Total 0.4 mg/dL (0.2-1.0)
[2025-04-11 06:45] LABS: Alkaline Phosphatase 154 U/L (46-116); Blood Urea Nitrogen 8 mg/dL (9-23); Chloride 95 mmol/L (98-107); Glucose 130 mg/dL (74-106); Sodium 135 mmol/L (136-145)
--- NOTE | 2025-04-11 09:34 | DVHPN2 ---
Progress Note - Dictate Date Seen: Apr 11, 2025 Medical Necessity Reason Pt with a Central, PICC or Fol: No Subjective No acute complaints. Hemodynamically stable. vital signs Vital Sign Date Time Temp Pulse Resp B/P (MAP) Pulse Ox O2 Delivery O2 Flow Rate FiO2 04/11/25 09:00 97.0 101 21 122/73 (89) 92 97.0 04/11/25 08:00 Nasal Cannula* 3 32 Total Intake and Output 04/10/25 04/10/25 04/11/25 15:00 23:00 07:00 Intake Total 300 ml 400 ml 500 ml Balance 300 ml 400 ml 500 ml medications Current Medications Medications Dose Ordered Sig/Henry Route Start Time Stop Time Status Last Admin Dose Admin Ceftriaxone Sodium 50 ml @ 100 mls/hr DAILY@09 IV 04/06/25 09:00 04/11/25 08:35 100 MLS/HR Azithromycin 250 ml @ 125 mls/hr DAILY IV 04/06/25 10:00 04/10/25 10:45 125 MLS/HR Montelukast Sodium 10 mg HS PO 04/06/25 22:00 04/10/25 21:37 10 MG Amlodipine Besylate 10 mg DAILY PO 04/06/25 10:00 04/10/25 10:44 10 MG Ondansetron HCl 4 mg Q4HP PRN IV 04/06/25 00:00 Enoxaparin Sodium 40 mg DAILY SC 04/06/25 10:00 04/10/25 10:54 40 MG Acetaminophen 650 mg Q6HP PRN PO 04/06/25 00:00 04/09/25 22:41 650 MG Nitroglycerin 0.4 mg Q5MINP PRN SL 04/06/25 00:00 Morphine Sulfate 2 mg Q30M PRN IV 04/06/25 00:00 Pravastatin Sodium 20 mg HS PO 04/06/25 22:00 04/10/25 21:37 20 MG Albuterol 2.5 mg Q4HR NEB 04/06/25 14:00 04/11/25 06:08 2.5 MG Ipratropium [place] 0.5 mg Q4HR NEB 04/06/25 14:00 04/11/25 06:08 0.5 MG Diagnostic Test (Pha) 1 strip BID 04/07/25 22:00 04/10/25 21:39 1 STRIP Insulin Human Regular BID SC 04/07/25 22:00 04/10/25 21:38 3 UNITS Dextrose 50 ml UD PRN IV 04/07/25 10:45 Metformin HCl 850 mg BIDWM PO 04/08/25 18:00 04/11/25 08:28 850 MG objective Gen - no acute distress HEENT - no thyromegaly CV - RRR, no m/r/g Resp - CTAB Ext - no edema laboratory and microbiology Laboratory Tests 04/11/25 05:22 Test 04/11/25 05:22 Range/Units Serum Glucose 130 H 74-106 mg/dL Assessment/Plan # Community acquired PNA # Septic shock # HTN # HLD # Type II DM - AM cortisol low likely iatrogenically due to recent exogenous steroid usage. No ongoing s/s of AI at this time. No indication for repeat steroid dosing at this time. May consider repeat outpatient AM cortisol in 6 weeks post discharge if clinically indicated. - Continue IV abx per primary - SSI insulin for steroid induced hyperglycemia. OK to resume home pharmacotherapy upon discharge. Dietary Evaluation Review Comments: Nutrition Recommendation: 1) [facility] 45gm + cardiac diet 2) Monitor PO intake, lab values, weight trend, and I/O Expected Outcomes/Goals: Intake to meet >75% estimated needs Lab values to improve FU 3-5 days Plan discussed with: Other (nurse) SANTHOSH CALL MD Apr 11, 2025 09:34
--- NOTE | 2025-04-11 10:49 | DVHPN2 ---
Reviewed: Care Plan, H&P, Labs, Medications, Previous Orders, Radiology Changes from previous H/P or p: No Changes Objective Vitals Vital Signs Date Time Temp Pulse Resp B/P (MAP) Pulse Ox O2 Delivery O2 Flow Rate FiO2 04/11/25 09:42 94 Nasal Cannula* 3 32 04/11/25 09:42 100 16 04/11/25 09:00 97.0 122/73 (89) 97.0 Intake/Output Intake and Output 04/11/25 07:00 Intake Total 1200 ml Balance 1200 ml Intake Oral 900 ml IV Total 300 ml # Voids 3 # Bowel Movements 1 Medications Current Medications Medications Dose Ordered Sig/Henry Route Start Time Stop Time Status Last Admin Dose Admin Ceftriaxone Sodium 50 ml @ 100 mls/hr DAILY@09 IV 04/06/25 09:00 04/11/25 08:35 100 MLS/HR Azithromycin 250 ml @ 125 mls/hr DAILY IV 04/06/25 10:00 04/10/25 10:45 125 MLS/HR Montelukast Sodium 10 mg HS PO 04/06/25 22:00 04/10/25 21:37 10 MG Amlodipine Besylate 10 mg DAILY PO 04/06/25 10:00 04/10/25 10:44 10 MG Ondansetron HCl 4 mg Q4HP PRN IV 04/06/25 00:00 Enoxaparin Sodium 40 mg DAILY SC 04/06/25 10:00 04/10/25 10:54 40 MG Acetaminophen 650 mg Q6HP PRN PO 04/06/25 00:00 04/09/25 22:41 650 MG Nitroglycerin 0.4 mg Q5MINP PRN SL 04/06/25 00:00 Morphine Sulfate 2 mg Q30M PRN IV 04/06/25 00:00 Pravastatin Sodium 20 mg HS PO 04/06/25 22:00 04/10/25 21:37 20 MG Albuterol 2.5 mg Q4HR NEB 04/06/25 14:00 04/11/25 09:42 2.5 MG Ipratropium [place] 0.5 mg Q4HR NEB 04/06/25 14:00 04/11/25 09:42 0.5 MG Diagnostic Test (Pha) 1 strip BID 04/07/25 22:00 04/10/25 21:39 1 STRIP Insulin Human Regular BID SC 04/07/25 22:00 04/10/25 21:38 3 UNITS Dextrose 50 ml UD PRN IV 04/07/25 10:45 Metformin HCl 850 mg BIDWM PO 04/08/25 18:00 04/11/25 08:28 850 MG Laboratory Results Laboratory Tests 04/11/25 05:22 Chemistry Test 04/11/25 05:22 Albumin 3.5 g/dL (3.2-4.8) Calcium Level 8.9 mg/dL (8.7-10.4) Total Protein 5.7 g/dL (5.7-8.2) LFT Test 04/11/25 05:22 Alanine Aminotransferase (ALT) 37 U/L (7-40) Alkaline Phosphatase 154 U/L (46-116) H Aspartate Amino Transferase (AST) 19 U/L (13-40) Total Bilirubin 0.4 mg/dL (0.2-1.0) Urinalysis Test 04/07/25 02:00 Urine Color Light-yellow (Yellow) Urine Clarity Clear (Clear) Urine pH 6.0 (5.0-9.0) Urine Specific [place] 1.035 (1.001-1.035) Urine Protein 1+ (Negative) H Urine Ketones Negative (Negative) Urine Blood 1+ /uL (Negative) H Urine Nitrite Negative (Negative) Urine Bilirubin Negative (Negative) Urine Urobilinogen Normal mg/dL (Negative) Urine Leukocyte Esterase 1+ /uL (Negative) Urine RBC 4 /hpf (0 - 4) Urine Microscopic WBC 8 /HPF (0-5) H Urine Squamous Epithelial Cells Few /hpf (<5) Urine Bacteria None seen /hpf (None Seen) Urine Glucose 4+ mg/dL (Normal) H Microbiology Microbiology Date/Time Source Procedure Growth Status 04/06/25 11:47 Sputum Gram Stain - Final Resulted 04/06/25 11:47 Respiratory Culture - Preliminary Presumptive [place] albicans Resulted 04/05/25 18:09 Blood Blood Culture - Final NO GROWTH AFTER 5 DAYS OF INCUBATION. Complete Labs and/or images reviewed: Labs reviewed by me, Image(s) reviewed by me Assessment/Plan Assessment/Plan Septic shock with elevated white count 15335, down to 12 K secondary to community-acquired pneumonia: Blood cultures negative, respiratory cultures negative Acute community-acquired right lower lobe pneumonia: Rocephin azithromycin albuterol Atrovent Solu-Medrol Acute hypoxic respiratory failure requiring 3 L of oxygen by nasal cannula consult for pulmonology Dr. Gómez Elevated D-dimer 4.36: DVT ruled out, PE ruled out Hypertension Hypercholesterolemia: Hypothyroidism Iatrogenic hyperthyroidism TSH 0.14 patient is currently taking Synthroid 75 mcg a day, will hold Synthroid for two weeks and resume at 50 mcg a day Acute asthma exacerbation Mild hypoadrenocorticsm, with a.m. cortisol of 3.[address] Dr[address] Dorado appreciated, he feels mild adrenal insufficiency secondary to recent steroid use, discontinued hydrocortisone Acute Hyperglycemia with blood sugar 400 possibly secondary to Solu-Medrol: DC Solu-Medrol New onset diabetes A1c 7.2, diabetic education start metformin 850 mg p.o. b.i.d. Generalized weakness for the last one or two months: Vitamin D3 levels normal Time Spent 60 minutes Advanced care planning time 20 minutes Patient is full code Seen in Med surg Jem at the bedside Physical therapy ordered Patient Does not want to go to care home facility for rehab Discharged home on home health Plan discussed with: Patient My Orders Orders - JOSH ARMSTRONG MD Procedure Category Date Status Time Discharge DISCHARGE 04/10/25 Transmitted 11:32 * Endocrinology CONS 04/10/25 Transmitted Consult 11:40 Date of Service: Apr 11, 2025 Billing Provider: JOSH ARMSTRONG MD Common Visit Codes: [id number] INP/OBS CARE(HIGH) JOSH ARMSTRONG MD Apr 11, 2025 10:49
[2025-04-11] MEDS ORDERED: DEXTROSE (50%) 50ML SYRG IV PRN (11:00)
--- NOTE | 2025-04-11 17:44 | DVHPN2 ---
Progress Note - Dictate Date Seen: Apr 11, 2025 Medical Necessity Reason Pt with a Central, PICC or Fol: No vital signs Vital Sign Date Time Temp Pulse Resp B/P (MAP) Pulse Ox O2 Delivery O2 Flow Rate FiO2 04/11/25 16:49 96.6 105 20 124/62 (82) 92 96.6 04/11/25 13:52 Nasal Cannula* 3 32 Total Intake and Output 04/10/25 04/10/25 04/11/25 15:00 23:00 07:00 Intake Total 300 ml 400 ml 500 ml Balance 300 ml 400 ml 500 ml medications Current Medications Medications Dose Ordered Sig/Henry Route Start Time Stop Time Status Last Admin Dose Admin Ceftriaxone Sodium 50 ml @ 100 mls/hr DAILY@09 IV 04/06/25 09:00 04/11/25 08:35 100 MLS/HR Azithromycin 250 ml @ 125 mls/hr DAILY IV 04/06/25 10:00 04/11/25 10:29 125 MLS/HR Montelukast Sodium 10 mg HS PO 04/06/25 22:00 04/10/25 21:37 10 MG Amlodipine Besylate 10 mg DAILY PO 04/06/25 10:00 04/11/25 10:30 10 MG Ondansetron HCl 4 mg Q4HP PRN IV 04/06/25 00:00 Enoxaparin Sodium 40 mg DAILY SC 04/06/25 10:00 04/11/25 10:29 40 MG Acetaminophen 650 mg Q6HP PRN PO 04/06/25 00:00 04/09/25 22:41 650 MG Nitroglycerin 0.4 mg Q5MINP PRN SL 04/06/25 00:00 Morphine Sulfate 2 mg Q30M PRN IV 04/06/25 00:00 Pravastatin Sodium 20 mg HS PO 04/06/25 22:00 04/10/25 21:37 20 MG Albuterol 2.5 mg Q4HR NEB 04/06/25 14:00 04/11/25 13:52 2.5 MG Ipratropium [place] 0.5 mg Q4HR NEB 04/06/25 14:00 04/11/25 13:52 0.5 MG Metformin HCl 850 mg BIDWM PO 04/08/25 18:00 04/11/25 08:28 850 MG Diagnostic Test (Pha) 1 strip BID 04/11/25 22:00 Insulin Human Regular Per Dr Queen, only g... BID SC 04/11/25 22:00 Dextrose 50 ml UD PRN IV 04/11/25 11:00 laboratory and microbiology Laboratory Tests 04/11/25 05:22 Test 04/11/25 05:22 Range/Units Serum Glucose 130 H 74-106 mg/dL Assessment/Plan Impression Acute hypoxemic respiratory failure Acute Kidney Injury Pneumonia Sepsis Patient seen and examined Events Low oxygen requirements On 3 liters nasal cannula No distress Labs and imaging reviewed CT angio results reviewed; No evidence of pulmonary embolism. Large consolidation with air bronchograms in the right upper lobe and smaller patchy airspace opacities in the right lower lobe, likely multifocal pneumonia. Linear consolidations in the basilar right middle and lower lobes with volume loss, likely atelectasis. Mild right hilar and mediastinal lymphadenopathy, likely reactive. Marked centrilobular emphysema. Mild cardiomegaly and small pericardial fluid. Management Supplemental oxygen Titrate to maintain sats 90% or above Incentive spirometry Continue antibiotics F/u cultures Bronchodilators Monitor renal function Monitor electrolytes Supplement as needed Disposition as per primary DVT prophylaxis Dietary Evaluation Review Comments: Nutrition Recommendation: 1) CCHO 45gm + cardiac diet 2) Monitor PO intake, lab values, weight trend, and I/O Expected Outcomes/Goals: Intake to meet >75% estimated needs Lab values to improve FU 3-5 days Plan discussed with: Patient COY BRUNSON MD Apr 11, 2025 17:44
[2025-04-11] MEDS: ACCU-CHEK COMFORT CURVE STRIP VI SCH (21:31)
[2025-04-11] MEDS: InsuLIN REG 1unit/0.01ml Soln (100units/ml) SC SCH (21:31)
[2025-04-12] VITALS (14 sets, daily range): BP systolic 107–131; BP diastolic 61–78; PULSE 71–101; RESP 12–18; TEMP 36.6; O2SAT 18–100
--- NOTE | 2025-04-12 12:41 | DVHDS2 ---
Discharge Summary Date of Admission Apr 05, 2025 at 23:54 Date of Discharge: Apr 12, 2025 Admitting Diagnosis Shortness of breath Wounds: None Labs/Diagnostic Data: Laboratory Results Test 04/12/25 10:29 04/11/25 05:22 04/10/25 06:02 04/09/25 15:54 POC Glucose 105 mg/dl (70-106) White Blood Count 11.3 10^3/uL (4.4-10.8) Red Blood Count 4.68 10^6/uL (4.0-5.20) Hemoglobin 12.2 g/dL (12.2-16.2) Hematocrit 37.7 % (36.0-46.0) Mean Corpuscular Volume 80.6 fL (80.0-100.0) Mean Corpuscular Hemoglobin 26.1 pg (28.0-32.0) Mean Corpuscular Hemoglobin Concent 32.4 g/dL (32.0-36.0) Red Cell Distribution Width 15.9 % (11.8-14.3) Platelet Count 388 10^3/uL (140-450) Mean Platelet Volume 7.1 fL (6.9-10.8) Neutrophils (%) (Auto) 77.4 % (37.0-80.0) Lymphocytes (%) (Auto) 15.4 % (10.0-50.0) Monocytes (%) (Auto) 6.0 % (0.0-12.0) Eosinophils (%) (Auto) 1.1 % (0.0-7.0) Basophils (%) (Auto) 0.1 % (0.0-2.0) Neutrophils # (Auto) 8.7 10 ^3/uL (1.6-8.6) Lymphocytes # (Auto) 1.7 10 ^3/uL (0.4-5.4) Monocytes # (Auto) 0.7 10 ^3/uL (0-1.3) Eosinophils # (Auto) 0.1 10 ^3/uL (0-0.8) Basophils # (Auto) 0 10 ^3/uL (0-0.2) Nucleated Red Blood Cells 0.0 % Sodium Level 135 mmol/L (136-145) Potassium Level 3.6 mmol/L (3.5-5.1) Chloride Level 95 mmol/L (98-107) Carbon Dioxide Level 30 mmol/L (20-31) Anion Gap 10 (5-15) Blood Urea Nitrogen 8 mg/dL (9-23) Creatinine 0.60 mg/dL (0.550-1.02) Glomerular Filtration Rate Calc 93 mL/min (>90) BUN/Creatinine Ratio 13.3 (10.0-20.0) Serum Glucose 130 mg/dL (74-106) Calcium Level 8.9 mg/dL (8.7-10.4) Total Bilirubin 0.4 mg/dL (0.2-1.0) Aspartate Amino Transferase (AST) 19 U/L (13-40) Alanine Aminotransferase (ALT) 37 U/L (7-40) Alkaline Phosphatase 154 U/L (46-116) Total Protein 5.7 g/dL (5.7-8.2) Albumin 3.5 g/dL (3.2-4.8) Differential Total Cells Counted 100.0 (100) Neutrophils % (Manual) 70 (37.0-80.0) Band Neutrophils % (Manual) 0 Lymphocytes % (Manual) 18 (10.0-50.0) Monocytes % (Manual) 6 (0-12) Eosinophils % (Manual) 1 (0-7) Basophils % (Manual) 0 (0.0-2.0) Metamyelocytes % (manual) 0 Myelocytes % (Manual) 0 Promyelocytes % (Manual) 0 Blast Cells % (Manual) 0 Reactive Lymphocytes 5 Platelet Estimate Adequate Red Blood Cell Morphology Normal Blood Gas Specimen Type Arterial Blood Gas Sample Site Right brachial Blood Gas Patient Temperature 37.0 Arterial Blood Date Drawn [id number] Arterial Blood pH 7.488 (7.350-7.450) Arterial Blood Partial Pressure CO2 43.6 mmHg (32.0-45.0) Arterial Blood Partial Pressure O2 44.2 mmHg (83.0-108.0) Arterial Blood HCO3 32.3 mmol/L (21.0-28.0) Arterial Blood Oxygen Saturation 80.6 % (94.0-98.0) Arterial Blood Base Excess 8.0 mmol/L (-2.0-3.0) Arterial Blood Oxyhemoglobin 79.5 % (94.0-98.0) Arterial Blood Carboxyhemoglobin 0.9 % (0.5-1.5) Arterial Blood Methemoglobin 0.5 % (0.0-1.5) Dexter Test Yes Blood Gas Total Hemoglobin 13.90 g/dL (12.0-16.0) Blood Gas Modality Room air FiO2 % 21.0 Blood Gas Critical Value Read Back Yes Blood Gas Notified Whom Dr. olivia white Blood Gas Notified Time [id number] Blood Gas Notified By Test 04/09/25 08:59 04/08/25 15:00 04/07/25 12:00 04/07/25 10:51 Cortisol AM Sample 3.76 ug/dL (5.27-22.45) Vitamin D 25-Hydroxy 76.5 ng/mL (30.0-100) Thyroid Stimulating Hormone (TSH) 0.14 uIU/mL (0.55-4.78) Influenza Type A Antigen Negative (Negative) Influenza Type B Antigen Negative (Negative) SARS-CoV-2 Antigen (Rapid) Negative (NEGATIVE) Hemoglobin A1c 7.2 % A1C (<5.7) Test 04/07/25 02:00 04/06/25 05:29 04/05/25 19:14 04/05/25 18:09 Urine Color Light-yellow (Yellow) Urine Clarity Clear (Clear) Urine pH 6.0 (5.0-9.0) Urine Specific [place] 1.035 (1.001-1.035) Urine Protein 1+ (Negative) Urine Ketones Negative (Negative) Urine Blood 1+ /uL (Negative) Urine Nitrite Negative (Negative) Urine Bilirubin Negative (Negative) Urine Urobilinogen Normal mg/dL (Negative) Urine Leukocyte Esterase 1+ /uL (Negative) Urine RBC 4 /hpf (0 - 4) Urine Microscopic WBC 8 /HPF (0-5) Urine Squamous Epithelial Cells Few /hpf (<5) Urine Bacteria None seen /hpf (None Seen) Urine Glucose 4+ mg/dL (Normal) Large Platelets Few Giant Platelets Few Microcytosis Slight D-Dimer, Quantitative 4.36 mg/L FEU (0.0-0.49) Troponin I High Sensitivity < 3 ng/L (</=34) Anisocytosis (manual) Slight Lactic Acid Level 1.4 mmol/L (0.4-2.0) B-Type Natriuretic Peptide 21.32 pg/mL (0-100) Other Laboratory Tests 04/11/25 05:22 Brief Hx & Hospital Course: 74-year-old female with a history of hypertension hypercholesterolemia hypothyroidism came in for generalized weakness and shortness of breaths. Found to [place] [address] secondary to community-acquired pneumonia admitted to [facility] treated with Rocephin azithromycin albuterol Atrovent Solu-Medrol blood cultures were negative respiratory cultures were negative patient has a elevated blood sugar secondary to steroid use and steroids were discontinued blood pressure came to reasonable control A1c was 7.2 consistent with a new onset diabetes started on metformin 850 mg p.o. b.i.d. vitamin D3 levels are normal patient has had iatrogenic hyperthyroidism TSH 0.14. Patient was taking Synthroid 75 mcg a day. Advised to stop it and take new prescription for Synthroid 50 mcg ID and adjust dosage by the primary Dr in one month. Patient had mild adrenal insufficiency with a serum cortisol level of 3.[address] Dorado for DD secondary to steroid use and advised no further workup. D-dimer was elevated 4.36 DVT ruled out PE ruled out. At the time of discharge patient on 3 L of oxygen by nasal cannula. Discharged home on home health for physical therapy medication management safety evaluation oxygen supplied she will follow up with the primary Dr. The Jem at the bedside at the time of discharge. Consults/Reason for consult Pulmonology Operations or Procedures CT chest without contrast Condition at Discharge: Fair Final Diagnosis/Problems List Assessment/Plan Septic shock with elevated white count 19259, down to 12 K secondary to community-acquired pneumonia: Blood cultures negative, respiratory cultures negative Acute community-acquired right lower lobe pneumonia: Rocephin azithromycin albuterol Atrovent Solu-Medrol Acute hypoxic respiratory failure requiring 3 L of oxygen by nasal cannula consult for pulmonology Dr. Gómez Elevated D-dimer 4.36: DVT ruled out, PE ruled out Hypertension Hypercholesterolemia: Hypothyroidism Acute asthma exacerbation Acute Hyperglycemia with blood sugar 400 possibly secondary to Solu-Medrol: FRIDA Solu-Medrol New onset diabetes A1c 7.2, diabetic education start metformin 850 mg p.o. b.i.d. Generalized weakness for the last one or two months: Mild hyperthyroidism TSH 0.14, endocrinology follow up as an outpatient Vitamin D3 levels normal Cortisone Levels pending Discharge Disposition: Home with Health Services Discharge Instruct/Medications Diet: Consistent carbohydrate Activity: Light activity Follow Up/Referral: Continue all your previous home medications You have new onset diabetes Check Blood sugars 3 times a day and take medications as prescribed Top Synthroid 75 mcg for two weeks and take Synthroid 50 mcg a day; please get TSH done in one month your primary Dr to adjust Synthroid dosage Medications: Azithromycin Albuterol MDI Atrovent MDI Metformin Transmitted to pharmacy Scheduled Amlodipine Besylate (Amlodipine Besylate), 1 TAB PO DAILY, (Reported) Azithromycin (Azithromycin), 1 TAB PO UD, (Reported) Azithromycin (Azithromycin), 1 TAB PO DAILY Levothyroxine Sodium (Synthroid), 1 TAB PO DAILY, (Reported) Levothyroxine Sodium (Synthroid Tablet), 1 TAB PO DAILY Metformin Hydrochloride (Metformin Hcl), 1 TAB PO BID Montelukast Sodium (Singulair), 1 TAB PO DAILY, (Reported) Montelukast Sodium (Montelukast Sodium), 1 TAB PO DAILY, (Reported) Prednisone (Prednisone), 1 TAB PO DAILY, (Reported) Prednisone (Prednisone), 20 MG PO DAILY Miscellaneous Medications Albuterol Sulfate (Proair Respiclick), INH, (Reported) 39 (Time taken for discharge summary 39 minutes) Discharge Statement: "Patient was advised to return to the ER or call 911 if any headaches, dizziness, shortness of breath, chest pain, abdominal pain, bleeding, fevers, or worsening of medical condition. Patient was counseled about treatment plan, medications, possible side effects, patientverbalized understanding. All questions were answered to the best of my ability. This discharge took greater then 30 minutes in planning, reviewing documentation, counseling the patient, and discussing with other team members." ASSESSMENT ASSESSMENT Hospital Course Improved Assessment Assessment/Plan Septic shock with elevated white count 04428, down to 12 K secondary to community-acquired pneumonia: Blood cultures negative, respiratory cultures negative Acute community-acquired right lower lobe pneumonia: Rocephin azithromycin albuterol Atrovent Solu-Medrol Acute hypoxic respiratory failure requiring 3 L of oxygen by nasal cannula consult for pulmonology Dr. Gómez Elevated D-dimer 4.36: DVT ruled out, PE ruled out Hypertension Hypercholesterolemia: Hypothyroidism Acute asthma exacerbation Acute Hyperglycemia with blood sugar 400 possibly secondary to Solu-Medrol: [place] Solu-Medrol New onset diabetes A1c 7.2, diabetic education start metformin 850 mg p.o. b.i.d. Generalized weakness for the last one or two months: Mild hyperthyroidism TSH 0.14, endocrinology follow up as an outpatient Vitamin D3 levels normal Cortisone Levels pending Date of Service: Apr 12, 2025 Billing Provider: JOSH WHITE MD Common Visit Codes: 73973-OEQ/OBS DISCH DAY >30min JOSH WHITE MD Apr 12, 2025 12:41
== END 2025-04-12 14:29 | disposition home health service (06) | DRG 871 ==
LOC: ER 17:22 → OVERFLOW 23:54 → ICU CENTRL 04-07 01:25 → TELE-WESTW 04-07 16:22
PROVIDERS: ADMIT Family Medicine; ATTEND Family Medicine
DX: A41.9 Sepsis, unspecified organism (principal); J18.9 Pneumonia, unspecified organism; J96.01 Acute respiratory failure with hypoxia; R65.21 Severe sepsis with septic shock; N17.9 Acute kidney failure, unspecified; J45.901 Unspecified asthma with (acute) exacerbation; E03.9 Hypothyroidism, unspecified; I10 Essential (primary) hypertension; E11.65 Type 2 diabetes mellitus with hyperglycemia; E05.80 Other thyrotoxicosis without thyrotoxic crisis or storm; E27.40 Unspecified adrenocortical insufficiency; Z20.822 Contact with and (suspected) exposure to COVID-19; E78.00 Pure hypercholesterolemia, unspecified; J43.2 Centrilobular emphysema; I51.7 Cardiomegaly; T38.0X5A Adverse effect of glucocorticoids and synthetic analogues, initial encounter; Y92.89 Other specified places as the place of occurrence of the external cause; Z99.81 Dependence on supplemental oxygen; Z82.5 Family history of asthma and other chronic lower respiratory diseases; Z88.6 Allergy status to analgesic agent
CPT/HCPCS: 36415; 36600; 71045; 71275; 80048; 80053; 81001; 82306; 82533; 82805; 82962; 83036; 83605; 83880; 84443; 84484; 85007; 85025; 85027; 85379; 87040; 87070; 87077; 87205; 87426; 87804; 93970; 94640; 96365; 96375; G0378; J1815